=== PATIENT | male | born 1960 | race Caucasian/White ===

== ENCOUNTER 2017-11-13 19:47 | Emergency (ER) | payer MEDICARE, MEDICAID, SELFPAY ==
[2017-11-13 19:57] VITALS: BP 169/96; PULSE 67; RESP 22; TEMP 36.1; O2SAT 95
[2017-11-13 20:00] VITALS: RESP 20
--- NOTE | 2017-11-13 20:24 | DI.RAD_ITS ---
SYMPTOM/DIAGNOSIS: COUGH, SOB, COPD PA AND LATERAL CHEST: Comparison is made with 12 August 2017. The heart is mildly enlarged, unchanged. The aorta appears normal in diameter. The lungs are clear. No infiltrate, effusion or pulmonary edema is seen. An old right 5th rib deformity is noted. IMPRESSION: No acute abnormality.
--- NOTE | 2017-11-13 20:29 | ED.GENADUL_ITS ---
Discharge Plan Disposition Patient Disposition: HOME Condition: Stable Discharge Details Chief Complaint: SOB Clinical Impression: Acute exacerbation of chronic obstructive pulmonary disease (COPD) Primary Care Provider: Marivel Cardenas ED Provider: Tommy Chaudhry Home Meds and New Rx's Prescriptions: New prednisone 50 mg tablet 50 mg PO DAILY 5 Days Qty: 5 RF: 0 doxycycline hyclate 100 mg tablet 100 mg PO BID 10 Days Qty: 20 RF: 0 Continue metformin 1,000 MG tablet 1,000 mg PO BID RF: 0 olanzapine 15 MG tablet 15 mg PO DAILY RF: 0 fluticasone [Flovent HFA] 12 GM HFA aerosol inhaler 2 spray Inhalation BID RF: 0 ranitidine HCl 150 MG capsule 150 mg PO BID RF: 0 rosuvastatin [Crestor] 20 MG tablet 20 mg PO DAILY RF: 0 albuterol sulfate [ProAir RespiClick] 90 MCG aerosol powdr breath activated 90 mcg Inhalation Q 4-6 HRS RF: 0 propranolol 40 MG tablet 40 mg PO BID Qty: 60 RF: 3 divalproex [Depakote ER] 500 MG tablet extended release 24 hr 500 mg PO BID RF: 0 polyethylene glycol 3350 255 GM powder 17 gm PO DAILY RF: 0 albuterol sulfate [Ventolin HFA] 1 PUFF HFA aerosol inhaler 2 puff Inhalation PRN PRNRF: 0 fenofibrate nanocrystallized [Tricor] 145 MG tablet 145 mg PO DAILY RF: 0 clotrimazole 15 GM cream 30 gm Topical BID 14 Days RF: 0 Discontinued doxycycline hyclate [Doryx] 100 MG tablet,delayed release (DR/EC) 100 mg PO BID 10 Days Qty: 20 RF: 0 Discharge Instructions Instructions: COPD (Chronic Obstructive Pulmonary Disease) (ED) Additional Instructions: Follow-up with regular doctor for recheck in approximately 1 week's time. Call for an appointment. Take antibiotics and prednisone as prescribed. Continue your regular medications. Continue your efforts to decrease smoking. Medical Decision Making MDM Narrative Medical decision making narrative: See 57-year-old male with a history of COPD presents with 4 days of shortness of breath. He is not hypoxic, is slightly diminished on exam. Differential diagnosis would include pneumonia, bronchitis. He has not had chest pain or significant weight gain, therefore feel ACS or acute congestive heart failure significantly less likely. Patient given oral steroids, and DuoNeb updraft, referred for chest x-ray which does not reveal acute pulmonary disease. Improved following inhaled DuoNeb. We will place him on a course of doxycycline and systemic steroids. I discussed home care as well as follow-up and return precautions with the patient prior to discharge. HPI - General Adult General Mode of arrival: ambulatory . Date/Time Provider Initiated Documentation: 11/13/17 20:19 . Limitations to Documentation: no limitations . Information obtained by: patient . History of Present Illness 57 year old M presents to the emergency department with the chief complaint of Shortness of breath, described as moderate, Quality is described as constant , and is localized to the chest. Patient started experiencing this day(s) and it has been constant. Rest improves symptom(s), Movement worsens symptoms . Patient notes no other symptoms.. HPI Narrative: Shortness of breath: 57-year-old male smoker with history of COPD. States she has had approximately 4 days of the gradual onset of generalized shortness of breath it is worse with exertion somewhat improved with his inhaled medications. He has not had any recent steroids or antibiotics. He denies fever. He has had a cough with production of sputum. No significant weight loss or gain. Denies recent chest pain. Related Data Home Medications Medication Instructions Recorded Confirmed albuterol sulfate [Ventolin HFA] 2 puff INHALATION PRN PRN 05/13/12 11/13/17 divalproex [Depakote ER] 500 mg PO BID 05/13/12 11/13/17 fenofibrate nanocrystallized 145 mg PO DAILY 05/13/12 11/13/17 [Tricor] polyethylene glycol 3350 17 gm PO DAILY 05/13/12 11/13/17 albuterol sulfate [ProAir 90 mcg INHALATION Q 4-6 HRS 02/25/17 11/13/17 RespiClick] fluticasone [Flovent HFA] 2 spray INHALATION BID inhaler 02/25/17 11/13/17 metformin 1,000 mg PO BID tab-cap 02/25/17 11/13/17 olanzapine 15 mg PO DAILY tab-cap 02/25/17 11/13/17 ranitidine HCl 150 mg PO BID tab-cap 02/25/17 11/13/17 rosuvastatin [Crestor] 20 mg PO DAILY tab-cap 02/25/17 11/13/17 Previous Rx's Medication Instructions Recorded clotrimazole 30 gm TOPICAL BID 14 Days tube 08/12/17 doxycycline hyclate 100 mg PO BID 10 Days #20 tab 11/13/17 prednisone 50 mg PO DAILY 5 Days #5 tab 11/13/17 Allergies Allergy/AdvReac Type Severity Reaction Status Date / Time Penicillins Allergy Hives, Unverified 11/13/17 20:06 GET SICK General Stated Complaint: SOB PATEL: 3 Review of Systems Review of Systems 7 systems reviewed, otherwise - PFSH Medical History Adenomatous colon polyp Back pain Bipolar 1 disorder COPD (chronic obstructive pulmonary disease) Diabetes mellitus GERD (gastroesophageal reflux disease) Heart disease Hyperlipidemia Hypertension Lumbar spinal stenosis Morbid obesity Resting tremor Tobacco dependence Social History Smoking/Tobacco Use Status: Current every day Exam Const General: cooperative and no acute distress Orientation: alert and awake HENMT Head: normal to inspection, normocephalic and atraumatic Eyes General: appearance normal, both eyes and all related structures Eyelids: eyelids normal Pupils: PERRL Neck Neck: normal visual inspection and full ROM Chest Chest: normal inspection of the chest Resp Effort & Inspection: normal respiratory effort, able to speak in complete sentences and other (Diminished throughout.) Cardio Palpation: normal PMI Rate: regular rate Rhythm: regular rhythm GI Inspection: normal to inspection Palpation: soft and no hepatosplenomegaly Skin Lesions: no lesions Rashes: no rashes Neuro General: alert, awake and oriented x3 Extrem General: other (Trace pretibial edema bilaterally. Normal range of motion and motor is 5 out of 5 bile) Psych Mental Status: mental status grossly normal Speech and Movement: speech and movement normal Mood: congruent mood Affect: normal affect Course Vital Signs Temperature 36.1 C L 11/13/17 19:57 Pulse 67 11/13/17 19:57 Respiratory Rate 22 11/13/17 19:57 Blood Pressure 169/96 H 11/13/17 19:57 Pulse Oximetry 95 11/13/17 19:57 Temperature 36.1 C L 11/13/17 19:57 Pulse 67 11/13/17 19:57 Respiratory Rate 20 11/13/17 20:00 Blood Pressure 169/96 H 11/13/17 19:57 Pulse Oximetry 95 11/13/17 19:57
[2017-11-13] MEDS: predniSONE 20 MG TAB 60 MG PO (20:37)
[2017-11-13 20:38] VITALS: PULSE 67; RESP 22; RESP 8; O2SAT 95
[2017-11-13] MEDS: Albuterol/Ipratropium 3 ML UPD VIAL UPD (20:38)
[2017-11-13 21:08] VITALS: RESP 8
--- NOTE | 2017-11-13 22:07 | DI.VRAD_ITS ---
EXAM: XR Chest, 2 Views EXAM DATE/TIME: 11/13/2017 8:25 PM CLINICAL HISTORY: 57 years old, male; Signs and symptoms; Cough and shortness of breath; Patient HX: Cough, SOB; Additional info: Copd TECHNIQUE: XR of the chest, 2 views. COMPARISON: CR - CHEST 2 VIEWS PA,LAT 08/12/2017 11:19 AM FINDINGS: Lungs: Lung volumes are adequate. No focal consolidation is seen. Pleural space: Unremarkable. No pleural effusion. No pneumothorax. Heart/Mediastinum: Cardiac silhouette appears mildly prominent, similar to priors. Mediastinal contours are otherwise within normal limits. Bones/joints: Minimal thoracic spondylosis. Possible old posterolateral right fifth rib fracture. No acute fractures are seen. IMPRESSION: No evidence of acute cardiopulmonary disease. Dictated and Authenticated by: Miguel Hardin MD. Ordering:CHERYL LONGORIA MD
[2017-11-13] MEDS: Doxycycline Hyclate 100 MG CAP PO (22:15)
[2017-11-13 22:24] VITALS: BP 152/92; PULSE 71; RESP 20; O2SAT 95
== END 2017-11-13 22:26 | disposition home or self-care (01) ==
PROVIDERS: Emergency Provider Emergency Medicine; PCP Nurse Practitioner Family
DX: J44.1 Chronic obstructive pulmonary disease with (acute) exacerbation (principal); E11.9 Type 2 diabetes mellitus without complications; Z79.84 Long term (current) use of oral hypoglycemic drugs; F17.210 Nicotine dependence, cigarettes, uncomplicated; I10 Essential (primary) hypertension
CPT/HCPCS: 94640; 99283; 71046; J7512; J7620

== ENCOUNTER 2018-01-10 15:52 | Outpatient (REF) | payer MEDICARE, MEDICAID, SELFPAY ==
[2018-01-10 19:14] LABS: COMMENT (LAB VIEW ONLY) 233.75 mg/dL; Microalb ug/mg Crea 217.8 ug/mg Cr
== END 2018-01-10 16:12 ==
LOC: NCHCN 15:52
PROVIDERS: PCP Nurse Practitioner Family; Visit Provider Nurse Practitioner Family
DX: E11.9 Type 2 diabetes mellitus without complications (principal)
CPT/HCPCS: 82043; 82570

== ENCOUNTER 2018-01-13 18:23 | Outpatient (REF) | payer MEDICARE, MEDICAID, SELFPAY ==
[2018-01-13 19:40] LABS: TSH (W/Ref FT4) 3.23 uIU/mL (0.358-3.74); Vitamin B12 454 pg/mL (193-986)
[2018-01-13 23:39] LABS: Vitamin D 25 Total 26.1 ng/ml (30-100)
== END 2018-01-13 18:43 ==
LOC: NCHCN 18:23
PROVIDERS: PCP Nurse Practitioner Family; Visit Provider Nurse Practitioner Family
DX: F10.99 Alcohol use, unspecified with unspecified alcohol-induced disorder (principal); E78.5 Hyperlipidemia, unspecified; E66.01 Morbid (severe) obesity due to excess calories
CPT/HCPCS: 82306; 82607; 84443

== ENCOUNTER 2018-02-01 14:42 | Outpatient (REF) | payer MEDICARE, MEDICAID, SELFPAY ==
[2018-02-01 18:38] LABS: BUN 11 mg/dL (7-18); Calcium 8.8 mg/dL (8.5-10.1); Chloride 97 mmol/L (98-107); Glucose 149 mg/dL (70-100); Sodium 137 mmol/L (136-145)
== END 2018-02-01 15:02 ==
LOC: NCHCN 14:42
PROVIDERS: PCP Nurse Practitioner Family; Visit Provider Nurse Practitioner Family
DX: E11.9 Type 2 diabetes mellitus without complications (principal)
CPT/HCPCS: 80048

== ENCOUNTER 2018-09-08 11:35 | Observation (INO) | payer MEDICARE, MEDICAID, SELFPAY ==
[2018-09-08] VITALS (11 sets, daily range): BP systolic 139–158; BP diastolic 79–103; PULSE 46–61; RESP 18–20; TEMP 36.1–36.7; O2SAT 94–97
--- NOTE | 2018-09-08 11:48 | DI.RAD_ITS ---
SYMPTOM/DIAGNOSIS: CHEST PAIN PA AND LATERAL CHEST: Comparison is made with 13 Nov 2017. The heart is enlarged, unchanged. There are mildly increased interstitial markings and mild peribronchial thickening which appears unchanged. The findings could represent chronic bronchitis. No focal consolidation of effusion is seen. There has been previous resection of a portion of the right 5th rib. IMPRESSION: No acute abnormality.
--- NOTE | 2018-09-08 11:55 | ED.GENADUL_ITS ---
Discharge Plan Disposition Condition: Stable Discharge Details Chief Complaint: Chest Pain Admit Date/Time: 09/08/18 16:07 Admit Provider: Almita Quiros Attending Provider: Almita Quiros Primary Care Provider: Marivel Cardenas ED Provider: Parth Boudreaux Discharge Instructions Activity:: Activity as Tolerated Equipment/Supplies:: No Equipment Needed Diet:: diabetic cardiac Discharge Orders Discharge Orders: Discharge Order (Routine); Ordered 09/09/18 Ordered By: Almita Quiros Discharge Data Discharge Date/Time-TO BE ENTERED AT DEPARTURE: 09/08/18 17:36 Medical Decision Making 12:10 --57-year-old male smoker with history of hyperlipidemia, hypertension, diabetes, COPD, here with chest pain intermittent over the past 1 week, had an episode lasting about 1 hour prior to calling EMS today. Concern for ACS. ECG reviewed and interpreted by me: Sinus bradycardia 55 bpm, normal axis, no STEMI, nondiagnostic. Plan to check troponin. Patient is currently pain-free. I will give aspirin. We will attempt to obtain outside hospital records from hospital in [facility] where he had catheterization. 12:55 --Initial troponin negative. Patient reassessed remained stable. Chest x-ray reviewed and interpreted by me: No acute cardiopulmonary disease noted. Given risk factors, plan for hospitalization for rule out ACS. I called and spoke with the hospitalist, Dr. Quiros, who request delta troponin be performed here in the emergency department. If negative, she will admit to an plan for admission to [facility] for further work-up. 14:32 --chest x-ray interpreted by radiology: No pneumonia but cannot exclude acute on chronic bronchitis. -- Delta trop neg. Plan to admit. HPI General Mode of arrival: EMS . Date/Time Provider Initiated Documentation: 09/08/18 11:39 . Limitations to Documentation: no limitations . Information obtained by: patient and EMS . HPI Narrative: 57-year-old male with multiple medical problems including history of COPD, GERD, hypertension, bipolar disorder, hyperlipidemia, hypertension, diabetes, smoker, here with chief complaint of chest pain. Patient notes that he has had chest pain intermittently almost daily for the past 1 week. Episodes are typically brief. He had an episode last night that lasted approximately 5 minutes and was described as a pressure in his left chest radiating to his left arm. He had associated clamminess, sweating and nausea with that episode. He had another episode again this morning described as pressure in his left chest that lasted approximately 1 hour. No radiation. He did have associated clammy sweats and nausea with episode today as well. He denies associated shortness of breath. No calf swelling or pain. No recent long distance travel or surgery. EMS arrived to find the patient pain-free and hemodynamically stable, Patient does note that he had a cardiac catheterization about 1 year ago in [facility] and was told that he had an artery with 50% blockage that did not require a stent. Related Data Home Medications Medication Instructions Recorded Confirmed ProAir RespiClick 90 mcg INHALATION Q 4-6 HRS 02/25/17 09/08/18 metformin 1,000 mg PO BID tab-cap 02/25/17 09/08/18 olanzapine 15 mg PO DAILY tab-cap 02/25/17 09/08/18 ranitidine HCl 150 mg PO BID tab-cap 02/25/17 09/08/18 rosuvastatin [Crestor] 20 mg PO HS tab-cap 02/25/17 09/08/18 propranolol 40 mg PO BID #60 tab-cap 06/08/17 09/08/18 fluticasone propionate 220 1 puff IH BID 06/22/18 09/08/18 mcg/actuation HFA aerosol inhaler gabapentin 300 mg capsule 300 mg PO TID 06/22/18 09/08/18 lisinopril 10 mg tablet 10 mg PO DAILY 06/22/18 09/08/18 nicotine 21 mg/24 hr daily 1 patch TD Q24H 06/22/18 09/08/18 transdermal patch Symbicort 1 puff INHALATION BID 09/08/18 09/08/18 cholecalciferol (vitamin D3) 2,000 unit PO DAILY 09/08/18 09/08/18 divalproex 500 mg PO BID 09/08/18 09/08/18 aspirin 81 mg PO DAILY #30 tab 09/09/18 magnesium oxide 400 mg PO BID #30 cap 09/09/18 nitroglycerin [Nitrostat] 0.4 mg SUBLINGUAL Q5 MIN PRN X3 09/09/18 PRN #30 tab prednisone 40 mg PO DAILY #6 tab 09/09/18 Previous Rx's Medication Instructions Recorded propranolol 40 mg PO BID #60 tab-cap 06/08/17 aspirin 81 mg PO DAILY #30 tab 09/09/18 magnesium oxide 400 mg PO BID #30 cap 09/09/18 nitroglycerin [Nitrostat] 0.4 mg SUBLINGUAL Q5 MIN PRN X3 09/09/18 PRN #30 tab prednisone 40 mg PO DAILY #6 tab 09/09/18 Allergies Allergy/AdvReac Type Severity Reaction Status Date / Time Penicillins Allergy Hives, Unverified 11/13/17 20:06 GET SICK General Stated Complaint: Chest Pain PATEL: 2 Review of Systems Review of Systems All systems reviewed & are unremarkable except as noted in HPI and below Constitutional Denies fever(s) Cardiovascular Reports chest pain and Denies dyspnea Respiratory Denies dyspnea Gastrointestinal Reports nausea PFSH Medical History Adenoma of colon (Acute) Sleep disturbance (Acute) Alcohol abuse (Chronic) Adenomatous colon polyp Back pain Bipolar 1 disorder COPD (chronic obstructive pulmonary disease) Diabetes mellitus GERD (gastroesophageal reflux disease) Heart disease Hyperlipidemia Hypertension Lumbar spinal stenosis Morbid obesity Resting tremor Tobacco dependence Surgical History H/O pneumonectomy (Chronic) History of cardiac cath (Chronic) Family History Father Cancer Maternal Cousin Cancer Other Hypertension Social History Smoking/Tobacco Use Status: Former Tobacco Use Quit Date: 09/04/18 Pack-years: 45 Tobacco: How many years used: 45 Counseling given: provider counseling and support medications Alcohol Intake: current Alcohol Intake frequency: a few times a week Drug use: Never Household members: other Details: daughter Do you feel safe in your relationship?: Yes Exam Const General: cooperative and no acute distress HENMT Head: normocephalic and atraumatic Mouth: moist mucous membranes Eyes Conjunctivae: normal conjunctivae Sclera: normal sclerae Neck Neck: trachea midline and supple Resp Effort & Inspection: normal respiratory effort Auscultation: no rales, no rhonchi and wheezes expiratory wheezes (bilateral subtle) Cardio Jugular venous pressure: no JVD Rate: regular rate and not tachycardic Rhythm: regular rhythm GI Palpation: soft, not firm, no guarding, no masses, not rigid and nontender Skin General skin exam: no rashes or lesions noted Neuro General: alert, awake, oriented x3 and tone normal Extrem General: no calf tenderness and no edema Psych Appearance: grossly normal Course Vital Signs Temperature 36.7 C 09/08/18 11:36 Pulse 57 L 09/08/18 11:36 Respiratory Rate 09/08/18 11:36 Blood Pressure 153/103 H 09/08/18 11:36 Pulse Oximetry 97 09/08/18 11:36 Temperature 36.7 C 09/08/18 11:36 Temperature Source Skin 09/08/18 11:36 Pulse 57 L 09/08/18 11:36 Respiratory Rate 09/08/18 11:36 Respiratory Effort Non-Labored 09/08/18 11:36 Blood Pressure 153/103 H 09/08/18 11:36 Blood Pressure Position Supine 09/08/18 11:36 Pulse Oximetry 97 09/08/18 11:36 Oxygen Delivery Method Room Air 09/08/18 11:36 Oxygen Flow Rate 0 09/08/18 11:36 Pain Level 0 09/08/18 11:36
[2018-09-08] MEDS: Aspirin 81 MG CHEW 324 MG CH (11:56)
[2018-09-08] MEDS: Normal Saline Flush 10 ML SYR IVP ×2 (11:57→21:18)
[2018-09-08 12:13] LABS: Abs Immature Grans 0.05 k/cumm (0.0-0.09); Absolute Basophil Count 0.05 k/cumm (0.0-0.2); Absolute Eosinophil Count 0.68 k/cumm (0.0-0.7); Absolute Lymphocyte Count 3.77 k/cumm (1.2-3.4); Absolute Monocyte Count 0.47 k/cumm (0.11-0.7); Basophils % 0.7; Eosinophils % 9.4; HCT 40.8 % (40.0-50.0); HGB 14.8 g/dL (13.5-17.5); Immature Grans % 0.7; Lymphocytes % 52.2; Mean Corp. HGB Concentration 36.3 g/dL (32.0-36.0); Mean Corpuscular Hemoglobin 32.4 pg (27.0-33.0); Mean Corpuscular Volume 89.3 fL (80-95); Mean Platelet Volume 10.4 fL (8.0-11.0); Monocytes % 6.5; Neutrophils % 30.5; Platelet Count 140 x1000/uL (130-400); RBC 4.57 m/cumm (4.50-6.00); White Blood Cell Count 7.22 k/cumm (4.4-10.8)
[2018-09-08 12:21] LABS: ALT 15 U/L (12-78); AST 8 U/L (15-37); Albumin 3.5 g/dL (3.4-5.0); Alkaline Phosphatase 61 U/L (46-116); Anion Gap 8.7 mmol/L (3-11); BUN 6 mg/dL (7-18); Bilirubin, Total 0.5 mg/dL (0.2-1.0); CO2 27.3 mmol/L (21.0-32.0); CREATININE 0.94 mg/dL (0.70-1.30); Calcium 9.6 mg/dL (8.5-10.1); Chloride 98 mmol/L (98-107); Glucose 142 mg/dL (70-100); Potassium 3.9 mmol/L (3.5-5.1); Sodium 134 mmol/L (136-145); Total Protein 6.9 g/dL (6.4-8.2)
[2018-09-08 12:22] LABS: Prothrombin Time 10.2 sec (9.3-11.0)
[2018-09-08 12:27] LABS: Troponin I < 0.05 ng/mL (0.00-0.06)
[2018-09-08 12:34] LABS: D-Dimer 451 ng/mlFEU (<500)
[2018-09-08] MEDS: MAGNESIUM SULFATE 2 GM/50 ML BAG IVPB (13:46)
--- NOTE | 2018-09-08 13:55 | DI.VRAD_ITS ---
EXAM: XR Chest, 2 Views EXAM DATE/TIME: 09/08/2018 12:21 PM CLINICAL HISTORY: 57 years old, male; Shortness of breath TECHNIQUE: Imaging protocol: XR of the chest, 2 views. COMPARISON: CR XR CHEST 2V PA LATERAL 11/13/2017 9:14 PM CR - CHEST 2 VIEWS PA,LAT 06/01/2014 6:39:57 AM FINDINGS: Lungs: There is bilateral bronchial wall thickening which appears chronic and therefore is favored be due to chronic bronchitis. Superimposed acute bronchitis however cannot be excluded radiographically. No focal peripheral lung consolidation, air bronchogram formation, or silhouette sign. Pleural space: No pleural effusion or pneumothorax. Heart/Mediastinum: The heart is not enlarged. The mediastinal contours are normal. Bones/joints: There is chronic segmental loss of the posterolateral right fifth rib which may be due to prior surgery or trauma. Given the fact that this was present on the exam dated 06/01/2014 this is not felt to be due to an aggressive destructive lesion. IMPRESSION: No pneumonia, but cannot exclude acute on chronic bronchitis. Dictated and Authenticated by: Gerson Rangel MD. Ordering:ALPESH Alba MD
[2018-09-08 15:25] LABS: Troponin I < 0.05 ng/mL (0.00-0.06)
--- NOTE | 2018-09-08 17:08 | NUR.NOTE ---
pt resting in bed vs on monitor provided with water tolorating po intake Nursing Note:
[2018-09-08] MEDS: Heparin 5,000 UNITS/ML VIAL 5000 UNITS SC ×2 (17:31→23:15)
--- NOTE | 2018-09-08 17:39 | W.PM.HP.N ---
Date of service: 09/08/18 Time of Service: 17:39 Assessment and Plan (1) Chest pain at rest: Current visit: Yes Status: Acute We are obtaining results of the cardiac cath from a year ago. While the radiation and the dizziness/nausea/fluttering are concerning for a real cardiac cause of the pain (unstable angina), the abdominal pain and diarrhea of the same onset argue against it. Pulmonary etiology is also a possibility. I do, however, think that it is possible that the diarrhea caused the patient to have hypomagnesemia, which could have caused an arrhythmia. Will monitor on telemetry, trend troponins, obtain echo and cardiology consult. My understanding is that we do not have stress tests available tomorrow. Continue asa started in ED; check fasting lipid panel, TSH. (2) COPD with acute exacerbation: Current visit: Yes Status: Acute Start the patient on prednisone 40 mg in addition to offering nebs. No evidence of PNA on CXR. (3) Non-insulin dependent type 2 diabetes mellitus: Current visit: Yes Status: Chronic Hold metformin; cover with SSI (4) Hypomagnesemia: Current visit: Yes Status: Acute Replete; read above (5) Hyperlipidemia: Current visit: Yes Status: Acute check fasting lipid panel, continue rosuvastatin (6) Hypertension: Current visit: Yes Status: Chronic No change in outpatient tx (7) GERD (gastroesophageal reflux disease): Current visit: Yes Status: Chronic Patient is on ranitidine - will continue (8) Discharge planning issues: Current visit: Yes Status: Acute Full code (9) DVT prophylaxis: Current visit: Yes Status: Acute Heparin SQ for DVT ppx History of Present Illness Chief Complaint: chest pains Narrative: Mr Aleman is a 57 year old male with PMHx of CAD s/p PA in [place] 8 years ago as well as cardiac cath last year in [place], [place] for ongoing chest pains (50% stenosis - unkown vessel, treated medically, per patient), as well as NIDDM2, HTN, Hyperlipidemia, tobacco abuse, who presented to [facility] ED today complaining of a number of symptoms that have been going on for 1 week. He describes L-sided dull and stabbing chest pain that have been happening daily for the last week, occuring at rest. Lately they started to radiate to the L shoulder (tingling), have made the patient feel dizzy, nauseated, as well as cold clammy sweats and shortness of breath. He had a chest pain last night that was self-limited, lasting for about 5 minutes. This morning he had a chest pain that was also accompanied by a sensation of fluttering in his chest that lasted for an hour, which made him nervous, so he came to the hospital. At the same time, the patient states he has been having abdominal pain, diarrhea and nausea associated with that. He is not having abdominal symptoms now. Diarrhea is being described as watery and sometimes soft brown. Finally, the patient has also noticed wheezing and a nonproductive cough for the last few days. No fevers. The patient has not been taking aspirin. I know I should, but I haven't bought it. Review of Systems Review of Systems 12 systems reviewed. Pertinent positives and negatives are as per HPI. [facility] Medical History Adenoma of colon (Acute) Sleep disturbance (Acute) Alcohol abuse (Chronic) Adenomatous colon polyp Back pain Bipolar 1 disorder COPD (chronic obstructive pulmonary disease) Diabetes mellitus GERD (gastroesophageal reflux disease) Heart disease Hyperlipidemia Hypertension Lumbar spinal stenosis Morbid obesity Resting tremor Tobacco dependence Surgical History H/O pneumonectomy (Chronic) History of cardiac cath (Chronic) Family History Father Cancer Maternal Cousin Cancer Other Hypertension Social History Smoking/Tobacco Use Status: Former Tobacco Use Quit Date: 09/04/18 Pack-years: 45 Tobacco: How many years used: 45 Counseling given: provider counseling and support medications Alcohol Intake: current Alcohol Intake frequency: a few times a week Drug use: Never Household members: other Details: daughter Do you feel safe in your relationship?: Yes Meds Home Medications Medication Instructions Recorded Confirmed Type ProAir RespiClick 90 mcg INHALATION Q 4-6 HRS 02/25/17 09/08/18 History metformin 1,000 mg PO BID tab-cap 02/25/17 09/08/18 History olanzapine 15 mg PO DAILY tab-cap 02/25/17 09/08/18 History ranitidine HCl 150 mg PO BID tab-cap 02/25/17 09/08/18 History rosuvastatin [Crestor] 20 mg PO HS tab-cap 02/25/17 09/08/18 History propranolol 40 mg PO BID #60 tab-cap 06/08/17 09/08/18 Rx fluticasone propionate 220 1 puff IH BID 06/22/18 09/08/18 History mcg/actuation HFA aerosol inhaler gabapentin 300 mg capsule 300 mg PO TID 06/22/18 09/08/18 History lisinopril 10 mg tablet 10 mg PO DAILY 06/22/18 09/08/18 History nicotine 21 mg/24 hr daily 1 patch TD Q24H 06/22/18 09/08/18 History transdermal patch budesonide-formoterol [Symbicort] 1 puff INHALATION BID 09/08/18 09/08/18 History cholecalciferol (vitamin D3) 2,000 unit PO DAILY 09/08/18 09/08/18 History divalproex 500 mg PO BID 09/08/18 09/08/18 History Allergies Allergy/AdvReac Type Severity Reaction Status Date / Time Penicillins Allergy Hives, Unverified 11/13/17 20:06 GET SICK Exam Narrative Exam Narrative: General: Pleasant obese male, sitting at the edge of the stretcher, does not appear to be in acute distress, tremulous; he does appear to be changing his story somewhat as he is talking to me Neurological: A&Ox3, resting tremors, no obvious focal deficits Psychiatric: Normal speech pattern/content, other than a somewhat inconsistent story Skin: intact; tattoos BUE's. Feet without lesions HEENT: Atraumatic, normocephalic, EOMI, MMM, edentuous, clear oropharynx, no submandibular or cervical lymphadenopathy, + goiter, no JVD, large neck diameter Cardiovascular: RRR, no m/r/g Lungs: Expiratory wheezing B - quiet Gastrointestinal: abdomen is soft, + BS, nontender, nondistended Genitourinary: deferred Extremities: no e/c/c BLE's, 2+ pedal pulses B, no lesions on feet Results Imaging Additional studies: CXR: No pneumonia, but cannot exclude acute on chronic bronchitis. EKG: sinus lisa with HR 55, evidence of tremors, nonspecific ST-T changes, no acute ischemia Labs : 09/08/18 11:50 09/08/18 11:50 Laboratory Results - last 24 hr 09/08/18 09/08/18 09/08/18 11:50 11:50 11:50 WBC 7.22 RBC 4.57 Hgb 14.8 Hct 40.8 MCV 89.3 MCH 32.4 MCHC 36.3 H RDW 13.0 Plt Count 140 MPV 10.4 Immature Gran % 0.7 Neutrophils % 30.5 Lymphocytes % 52.2 Monocytes % 6.5 Eosinophils % 9.4 Basophils % 0.7 Absolute Neutrophils 2.20 Absolute Lymphocytes 3.77 H Absolute Monocytes 0.47 Absolute Eosinophils 0.68 Absolute Basophils 0.05 PT 10.2 INR 1.0 D-Dimer 451 Sodium 134 L Potassium 3.9 Chloride 98 Carbon Dioxide 27.3 Anion Gap 8.7 BUN 6 L Creatinine 0.94 Estimated GFR/1.73 m2 >= 60.00 Glucose 142 H Calcium 9.6 Magnesium 1.0 L Total Bilirubin 0.5 AST 8 L ALT 15 Alkaline Phosphatase 61 Troponin I < 0.05 Total Protein 6.9 Albumin 3.5 09/08/18 14:50 WBC RBC Hgb Hct MCV MCH MCHC RDW Plt Count MPV Immature Gran % Neutrophils % Lymphocytes % Monocytes % Eosinophils % Basophils % Absolute Neutrophils Absolute Lymphocytes Absolute Monocytes Absolute Eosinophils Absolute Basophils PT INR D-Dimer Sodium Potassium Chloride Carbon Dioxide Anion Gap BUN Creatinine Estimated GFR/1.73 m2 Glucose Calcium Magnesium Total Bilirubin AST ALT Alkaline Phosphatase Troponin I < 0.05 Total Protein Albumin Last Vital Signs Temp 36.7 C 09/08/18 11:36 Pulse 57 L 09/08/18 11:36 Resp 18 09/08/18 12:00 BP 153/103 H 09/08/18 11:36 Pulse Ox 97 09/08/18 11:36
[2018-09-08] MEDS: Magnesium Chloride 64 MG TABCR PO (20:23)
[2018-09-08] MEDS: Nicotine 21 MG/24 HR PATCH TD (20:23)
[2018-09-08] MEDS: Budesonide/Formoterol 160/4.5 6 GM 60 PUFF INH IH (20:23)
[2018-09-08] MEDS: Rosuvastatin 10 MG TAB 20 MG PO (20:24)
[2018-09-08] MEDS: Divalproex 500 MG TABEC PO (20:24)
[2018-09-08] MEDS: Gabapentin 300 MG CAP PO (20:24)
[2018-09-08] MEDS: MAGNESIUM SULFATE 4 GM/100 ML BAG IVPB (21:15)
[2018-09-08] MEDS: Normal Saline 500 ML 50 ML IV (21:15)
[2018-09-08] MEDS: Propranolol 40 MG TAB PO (21:15)
[2018-09-08] MEDS: predniSONE 20 MG TAB 40 MG PO (22:38)
[2018-09-08 22:55] LABS: Troponin I < 0.05 ng/mL (0.00-0.06)
[2018-09-09] VITALS (7 sets, daily range): BP systolic 145–168; BP diastolic 82–86; PULSE 51–65; RESP 17–22; TEMP 36.1–36.6; O2SAT 96–99
[2018-09-09 07:05] LABS: HGB 15.5 g/dL (13.5-17.5); Mean Corpuscular Hemoglobin 32.1 pg (27.0-33.0); Mean Platelet Volume 10.2 fL (8.0-11.0); Platelet Count 146 x1000/uL (130-400); RBC 4.83 m/cumm (4.50-6.00); RBC Distribution Width 12.9 % (11.8-14.1)
[2018-09-09] MEDS: Budesonide/Formoterol 160/4.5 6 GM 60 PUFF INH IH ×2 (07:27→07:30)
[2018-09-09 07:28] LABS: Anion Gap 5.1 mmol/L (3-11); BUN 9 mg/dL (7-18); CO2 28.9 mmol/L (21.0-32.0); CREATININE 0.88 mg/dL (0.70-1.30); Calcium 8.8 mg/dL (8.5-10.1); Chloride 95 mmol/L (98-107); Glucose 159 mg/dL (70-100); Magnesium 1.8 mg/dL (1.8-2.4); Potassium 4.3 mmol/L (3.5-5.1); Sodium 129 mmol/L (136-145)
--- NOTE | 2018-09-09 07:30 | MERGE_ITS ---
*[facility]* *[facility]* [address] [place] [address] Date of study: 09/09/2018 Transthoracic Echocardiography M-mode, complete 2D, complete spectral Doppler, and color Doppler *STUDY CONCLUSIONS* Summary: 1. Left ventricle: The cavity size was normal. Wall thickness was at the upper limits of normal. Systolic function was normal. The estimated ejection fraction was 60-65%. Wall motion was normal; there were no regional wall motion abnormalities. 2. Right ventricle: The cavity size was at the upper limits of normal. Systolic function was normal. 3. Left atrium: The atrium was mildly dilated. 4. Inferior vena cava: The vessel was patent and normal in size. The respirophasic diameter changes were in the normal range (greater than or equal to 50%), consistent with normal central venous pressure. *PATIENT PRESENTATION* Height: 180.3cm (71in ) S/D Pressure: 164 / 84 Weight: 118.8kg (261.5lb ) BSA: 2.48m^2 Test start time: 07:40 AM. Test stop time: 08:40 AM. 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 This study was interpreted by [facility]. Pertinent images and digital data are archived for permanent storage and are available for subsequent review. No prior study was available for comparison. Study status: Routine. Transthoracic echocardiography. M-mode, complete 2D, complete spectral Doppler, and color Doppler. A Transthoracic Echocardiogram was performed. Scanning was performed from the parasternal, apical, subcostal, and suprasternal notch acoustic windows. Images were obtained using an [id number] cardiac ultrasound machine. Image quality was adequate. Study completion: The patient tolerated the procedure well. There were no complications. History: PMH: Chest pain. *CARDIAC ANATOMY* Left ventricle: The cavity size was normal. Wall thickness was at the upper limits of normal. Systolic function was normal. The estimated ejection fraction was 60-65%. Wall motion was normal; there were no regional wall motion abnormalities. Findings consistent with diastolic dysfunction. There was no evidence of elevated ventricular filling pressure by Doppler parameters. Aortic valve: Trileaflet; mildly thickened leaflets. Mobility was not restricted. Doppler: Transvalvular velocity was within the normal range. There was no stenosis. There was no significant regurgitation. VTI ratio of LVOT to aortic valve: 0.92. Valve area (VTI): 3.1cm^2. Indexed valve area (VTI): 1.3cm^2/m^2. Peak velocity ratio of LVOT to aortic valve: 0.77. Valve area (Vmax): 2.6cm^2. Indexed valve area (Vmax): 1.1cm^2/m^2. Mean velocity ratio of LVOT to aortic valve: 0.71. Valve area (Vmean): 2.4cm^2. Indexed valve area (Vmean): 1cm^2/m^2. Mean gradient (S): 4.5mm Hg. Peak gradient (S): 9.3mm Hg. Aorta: Aortic root: The aortic root was normal in size. Ascending aorta: The ascending aorta was moderately dilated (45 mm). Mitral valve: Structurally normal valve. Mobility was not restricted. Doppler: Transvalvular velocity was within the normal range. There was no evidence for stenosis. There was trivial regurgitation. Valve area by pressure half-time: 3.6cm^2. Indexed valve area by pressure half-time: 1.4cm^2/m^2. Peak gradient (D): 2.9mm Hg. Left atrium: The atrium was mildly dilated. Right ventricle: The cavity size was at the upper limits of normal. Systolic function was normal. Pulmonic valve: Poorly visualized. Doppler: Transvalvular velocity was within the normal range. There was no evidence for stenosis. There was no significant regurgitation. Tricuspid valve: Structurally normal valve. Doppler: Transvalvular velocity was within the normal range. There was no evidence for stenosis. There was no significant regurgitation. Pulmonary artery: Poorly visualized. Systolic pressure could not be accurately estimated. Right atrium: The atrium was normal in size. Pericardium: There was no pericardial effusion. Systemic veins: Inferior vena cava: Well visualized. The vessel was patent and normal in size. The respirophasic diameter changes were in the normal range (greater than or equal to 50%), consistent with normal central venous pressure. Baseline ECG: Sinus bradycardia. Measurements Left ventricle Value Reference LV ID, ED, PLAX 5.2 cm 3.5 - 6.0 LV ID, ES, PLAX 3.4 cm 2.1 - 4.0 LV PW thickness, ED, PLAX 1.1 cm LV end-diastolic volume, 1-p A2C 109 ml LV ejection fraction, 1-p A2C 73 % LV end-diastolic volume, 1-p A4C 141 ml LV ejection fraction, 1-p A4C 69 % LV e', lateral 0.076 m/sec LV E/e', lateral 11 LV e', medial 0.066 m/sec LV E/e', medial 13 LV e', average 0.071 m/sec LV E/e', average 12 Ventricular septum Value Reference IVS thickness, ED, PLAX 1.1 cm LVOT Value Reference LVOT ID, A-P 2.1 cm LVOT area 3.4 cm^2 LVOT peak velocity, S 1.18 m/sec LVOT mean velocity, S 0.71 m/sec LVOT VTI, S 27.5 cm LVOT peak gradient, S 5.6 mm Hg LVOT mean gradient, S 2.4 mm Hg Stroke volume (SV), LVOT DP 94 ml Stroke index (SV/bsa), LVOT DP 38 ml/m^2 Aortic valve Value Reference Aortic valve peak velocity, S 1.5 m/sec Aortic valve mean velocity, S 1 m/sec Aortic valve VTI, S 30.0 cm Aortic mean gradient, S 4.5 mm Hg Aortic peak gradient, S 9.3 mm Hg VTI ratio, LVOT/AV 0.92 Aortic valve area, VTI 3.1 cm^2 Velocity ratio, peak, LVOT/AV 0.77 Aortic valve area, peak velocity 2.6 cm^2 Velocity ratio, mean, LVOT/AV 0.71 Aortic valve area, mean velocity 2.4 cm^2 Aortic valve area/bsa, mean velocity 1 cm^2/m^2 Aorta Value Reference Aortic root ID, ED 3.6 cm Ascending aorta ID, A-P, S 4.5 cm RVOT Value Reference RVOT VTI, S 17.9 cm Left atrium Value Reference LA ID, A-P, ES 4.0 cm LA ID/bsa, A-P 1.6 cm/m^2 <=2.2 LA volume/bsa, ES, 1-p A4C 35 ml/m^2 LA volume, ES, 2-p 71 ml LA volume/bsa, ES, 2-p 29 ml/m^2 LA/aortic root ratio 1.11 Mitral valve Value Reference Mitral E-wave peak velocity 0.85 m/sec Mitral A-wave peak velocity 0.98 m/sec Mitral deceleration time 213 ms 150 - 230 Mitral pressure half-time 62 ms Mitral peak gradient, D 2.9 mm Hg Mitral E/A ratio, peak 0.87 Mitral valve area, PHT, DP 3.6 cm^2 Pulmonary veins Value Reference Pulmonary vein peak velocity, S 0.57 m/sec Pulmonary vein peak velocity, D 0.59 m/sec Pulmonary vein velocity ratio, peak, 0.96 S/D Pulmonary vein A-wave reversal peak 0.32 m/sec velocity Pulmonary vein A-wave reversal 152 ms duration Tricuspid valve Value Reference Tricuspid regurg peak velocity 1.9 m/sec Tricuspid peak RV-RA gradient 15.1 mm Hg Right atrium Value Reference RA area, ES, A4C (H) 20.8 cm^2 8.3 - 19.5 Legend: (L) and (H) monica values outside specified reference range. I have personally reviewed the images and have reviewed and edited the reported findings. Electronically signed by Rogelio Steward 09/09/2018 09:09
[2018-09-09 07:36] LABS: Troponin I < 0.05 ng/mL (0.00-0.06)
--- NOTE | 2018-09-09 07:44 | PHARADMIT ---
Admission Pharmacy Clinical Review CHEST PAIN, QUESTION of UNSTABLE ANGINA Code Status Full Code Current Weight Wgt-119.2 kg Renally Cleared and Narrow Therapeutic Index Meds CrCl~96 mL/min Meds-OK QTc Value / Action Taken QTc-.386 NA BP Control, Fever BP- 168/84 Tmax-36.1C Electrolytes reviewed Na- 129 K+4.3 Mag-1.8 DVT Prophylaxis ASA-ec, Heparin-SC Opiate Usage / Scheduled Bowel Regimen Ordered No Yes Plt/SCr for Heparin / Enoxaparin Plts-146 SCr- 0.88 INR for Warfarin inr-1.0 H/H stable, WBC/Bands H&H-15.5/43.0 WBC- 5.80 Antibiotic appropriateness none Cultures and Sensitivities none Surgical ABX d/c within 24 hr NA DM control / Insulin Dosing BG-159 Aspart Heart Failure (Check EF%) (ANKIT's, B-Block, Diuretics) Lisinopril, NTG, Propranolol IV to PO Switch No Home Meds Reviewed Yes Home Meds Not Ordered Metformin, Comments Flovent -therapeutic Subst.
[2018-09-09] MEDS: Heparin 5,000 UNITS/ML VIAL 5000 UNITS SC ×2 (09:04→16:58)
[2018-09-09] MEDS: Gabapentin 300 MG CAP PO ×2 (09:04→14:16)
[2018-09-09] MEDS: Aspirin E.C. 81 MG TABEC PO (09:05)
[2018-09-09] MEDS: Propranolol 40 MG TAB PO (09:05)
[2018-09-09] MEDS: Lisinopril 10 MG TAB PO (09:05)
[2018-09-09] MEDS: Cholecalciferol (Vitamin D3) 1,000 UNIT TAB 2000 UNITS PO (09:05)
[2018-09-09] MEDS: Magnesium Chloride 64 MG TABCR PO (09:05)
[2018-09-09] MEDS: predniSONE 20 MG TAB 40 MG PO (09:05)
[2018-09-09] MEDS: Divalproex 500 MG TABEC PO (09:05)
[2018-09-09] MEDS: OLANZapine 5 MG TAB 15 MG PO (09:09)
--- NOTE | 2018-09-09 09:48 | PDOC.CMIN ---
Care Management Initial Assess REASON FOR HOSPITALIZATION:: chest pain, question unstable angina PAST MEDICAL HISTORY/PAST SURGICAL HISTORY:: Medical: adenoma of colon, sleep disturbance, chronic ETOH abuse, back pain, bipolar 1 disorder, COPD, DM2, GERD, heart disease, hyperlipidemia, HTN, lumbar spinal stenosis, obesity, resting tremor, tobacco abuse. Surgical: H/O pneumonectomy, H/O cardiac cath. PREVIOUS FUNCTIONAL STATUS/SOCIAL/FAMILY SUPPORTS:: He is 57 yo single male who lives with his daughter and LATRICE and their two children ages 3 and 4, in a home in [place]. He is disabled on SSDI and SSI. He no longer drives, but his daughter takes him to appts. Da works maritime pilot but her is home with the children when they are not at daycare. He is usually able to manage his own ADL's but da assists with IADL's, and medications. CURRENT FUNCTIONAL STATUS:: He was sitting up on edge of bed when CM entered. He easily engages in discussion re plans. ADVANCE DIRECTIVES:: Does not have formal document but was receptive to information which was given. Has patient been provided with information about the portal?: Yes Did the patient sign up for the portal?: No CODE STATUS:: Full Code INSURANCE COVERAGE / FINANCIAL ISSUES:: Medicare. Medicaid CURRENT HOME/COMMUNITY SERVICES/EQUIPMENT:: No services or equipment used. PRIMARY CARE PHYSICIAN:: Marivel Cardenas NP POTENTIAL DISCHARGE NEEDS:: He will need follow-up with his PCP as directed. PATIENT/FAMILY EDUCATION NEEDS:: Review d/c instructions re meds and activity levels. Review Ask me Now questions. ANTICIPATED BARRIERS TO DISCHARGE:: none identified TRANSPORTATION:: via car with his daughter PLAN:: d/c home as per MD, no services anticipated.
[2018-09-09] MEDS: Insulin Aspart 300 UNITS/3 ML PEN SC ×2 (11:31→17:02)
--- NOTE | 2018-09-09 13:34 | INITIAL_ITS ---
Care Management Initial Assess REASON FOR HOSPITALIZATION:: chest pain, question unstable angina PAST MEDICAL HISTORY/PAST SURGICAL HISTORY:: Medical: adenoma of colon, sleep disturbance, chronic ETOH abuse, back pain, bipolar 1 disorder, COPD, DM2, GERD, heart disease, hyperlipidemia, HTN, lumbar spinal stenosis, obesity, resting tremor, tobacco abuse. Surgical: H/O pneumonectomy, H/O cardiac cath. PREVIOUS FUNCTIONAL STATUS/SOCIAL/FAMILY SUPPORTS:: He is 57 yo single male who lives with his daughter and LATRICE and their two children ages 3 and 4, in a home in [place]. He is disabled on SSDI and SSI. He no longer drives, but his daughter takes him to appts. Da works time cycle operator but her is home with the children when they are not at daycare. He is usually able to manage his own ADL's but da assists with IADL's, and medications. CURRENT FUNCTIONAL STATUS:: He was sitting up on edge of bed when CM entered. He easily engages in discussion re plans. ADVANCE DIRECTIVES:: Does not have formal document but was receptive to informa tion which was given. Has patient been provided with information about the portal?: Yes Did the patient sign up for the portal?: No CODE STATUS:: Full Code INSURANCE COVERAGE / FINANCIAL ISSUES:: Medicare. Medicaid CURRENT HOME/COMMUNITY SERVICES/EQUIPMENT:: No services or equipment used. PRIMARY CARE PHYSICIAN:: Marivel Cardenas NP POTENTIAL DISCHARGE NEEDS:: He will need follow-up with his PCP as directed. PATIENT/FAMILY EDUCATION NEEDS:: Review d/c instructions re meds and activity levels. Review Ask me Now questions. ANTICIPATED BARRIERS TO DISCHARGE:: none identified TRANSPORTATION:: via car with his daughter PLAN:: d/c home as per MD, no services anticipated.
--- NOTE | 2018-09-09 16:11 | DSE_ITS ---
Date of service: 09/09/18 Time of Service: 16:09 DS: Diagnosis Discharge Diagnosis (1) Chest pain at rest: Status: Acute (2) COPD with acute exacerbation: Status: Acute (3) Non-insulin dependent type 2 diabetes mellitus: Status: Chronic (4) Hypomagnesemia: Status: Acute (5) Hyperlipidemia: Status: Acute (6) Hypertension: Status: Chronic (7) GERD (gastroesophageal reflux disease): Status: Chronic Discharge Plan Disposition Patient Disposition: HOME Condition: Stable Discharge Details Reason For Visit: CHEST PAIN, QUESTION OF UNSTABLE ANGINA Admit Date/Time: 09/08/18 16:07 Admit Provider: Almita Quiros Attending Provider: Almita Quiros Primary Care Provider: Marivel Cardenas Hospital Course Hospital Course: Mr Aleman is a 57 year old male wt PMHx of reported CAD s/p [place] as well as a cardiac cath in [place] a year ago, as well as NIDDM2, COPD, HTN, hyperlipidemia, who was observed on hospitalist service at [facility] overnight for reports of chest pains occuring at rest with radiation to LUE, but also accompanied by diarrhea and abdominal pain. He was also found to have a COPD exacerbation. The patient did not have an acute coronary syndrome on this admission. He was evaluated by cardiology - because the story is not classic for unstable angina, it is felt that the patient is safe for discharge home with follow up for outpatient nuclear stress test. He is being given a prescription for nitroglycerin on discharge. Home Meds and New Rx's Prescriptions: New prednisone 20 mg Tablet 40 mg PO DAILY Qty: 6 RF: 0 aspirin 81 mg Tablet,Delayed Release (Dr/Ec) 81 mg PO DAILY Qty: 30 RF: 0 nitroglycerin [Nitrostat] 0.4 mg Tablet, Sublingual 0.4 mg Sublingual Q5 MIN PRN X3 PRNQty: 30 RF: 0 magnesium oxide 400 mg capsule 400 mg PO BID Qty: 30 RF: 0 Continued lisinopril 10 mg tablet 10 mg PO DAILY RF: 0 gabapentin 300 mg capsule 300 mg PO TID RF: 0 Flovent HFA 220 mcg/actuation HFA aerosol inhaler 1 puff IH BID RF: 0 nicotine [Nicoderm CQ] 21 mg/24 hr patch 24 hour 1 patch TD Q24H RF: 0 metformin 1,000 MG tablet 1,000 mg PO BID RF: 0 olanzapine 15 MG tablet 15 mg PO DAILY RF: 0 ranitidine HCl 150 MG capsule 150 mg PO BID RF: 0 rosuvastatin [Crestor] 20 MG tablet 20 mg PO HS RF: 0 ProAir RespiClick 90 MCG aerosol powdr breath activated 90 mcg Inhalation Q 4-6 HRS RF: 0 propranolol 40 MG tablet 40 mg PO BID Qty: 60 RF: 3 divalproex 500 mg Tablet,Delayed Release (Dr/Ec) 500 mg PO BID RF: 0 cholecalciferol (vitamin D3) 1,000 unit Tablet 2,000 unit PO DAILY RF: 0 Symbicort 160-4.5 mcg/actuation Hfa Aerosol Inhaler 1 puff Inhalation BID RF: 0 Discharge Instructions Instructions: Nitroglycerin (By mouth), Cardiac Stress Test (DC), Chest Pain (DC) Additional Instructions: Return to the hospital with any more chest pain, fever, bleeding, or shortness of breath. Finish your steroids as prescribed. Referrals: Blanca Baugh MD [MD CONSULTING PHYSICIAN] - Marivel Cardenas [Primary Care Provider] - Activity:: Activity as Tolerated Equipment/Supplies:: No Equipment Needed Diet:: diabetic cardiac Discharge Orders Discharge Orders: Discharge Order (Routine); Ordered 09/09/18 Ordered By: Almita Quiros Other Ambulatory Orders: Basic Metabolic Panel (Routine) Timeframe: 1 Week Location: Determined by Patient Ordered By: Almita Quiros Magnesium (Routine) Timeframe: 1 Week Location: Determined by Patient Ordered By: Almita Quiros NM MPI rest & stress grp (Routine) Timeframe: 1 Week Facility: [facility] - Location: CARDIAC LAB Ordered By: Almita Quiros Exam Narrative Exam Narrative: General: Pleasant obese male, laying in bed asleep, easily arousable Neurological: A&Ox3, resting tremors, no obvious focal deficits Psychiatric: Normal speech pattern/content Skin: intact; tattoos BUE's. Feet without lesions HEENT: Atraumatic, normocephalic, EOMI, MMM, edentuous, clear oropharynx, no submandibular or cervical lymphadenopathy, + goiter, no JVD, large neck diameter Cardiovascular: RRR, no m/r/g Lungs: wheezing has resolved - CTAB Gastrointestinal: abdomen is soft, + BS, nontender, nondistended Genitourinary: deferred Extremities: no e/c/c BLE's, 2+ pedal pulses B, no lesions on feet DS: Data Vitals/I&O Vitals and I&O: Vital Signs Temperature 36.6 C 09/09/18 12:00 Temperature Source Tympanic 09/09/18 12:00 Pulse 65 09/09/18 12:00 Pulse Rhythm Regular 09/09/18 10:26 Respiratory Rate 18 09/09/18 12:00 Respiratory Effort Non-Labored 09/09/18 10:26 Respiratory Depth Normal 09/09/18 10:26 Respiratory Pattern Normal 09/09/18 10:26 Blood Pressure 155/86 H 09/09/18 12:00 Blood Pressure Position Supine 09/08/18 11:36 Pulse Oximetry 99 09/09/18 12:00 Oxygen Delivery Method Room Air 09/09/18 12:00 Oxygen Flow Rate 0 09/09/18 12:00 Pain Level 6 09/08/18 18:19 Intake & Output 09/08/18 09/09/18 09/09/18 23:59 11:59 23:59 Intake Total 316.667 / 316.667 110 / 110 Output Total 600 / 600 Balance 316.667 / 316.667 -490 / -490 Weight 119.2 kg 117.8 kg Intake: IV 76.667 / 76.667 110 / 110 Oral 240 / 240 Output: Urine 600 / 600 Other: Urine Color Pale Yellow Urine Appearance Clear Clear Urine Odor None Voiding Methods Toilet Urinal Completed studies during hospitalization [Text1]: CXR: No pneumonia, but cannot exclude acute on chronic bronchitis. EKG: sinus lisa with HR 55, evidence of tremors, nonspecific ST-T changes, no acute ischemia Labs on day of discharge: Labs from last 24 hours 09/09/18 09/09/18 09/08/18 06:45 06:45 22:10 WBC 5.80 RBC 4.83 Hgb 15.5 Hct 43.0 MCV 89.0 MCH 32.1 MCHC 36.0 RDW 12.9 Plt Count 146 MPV 10.2 Sodium 129 L Potassium 4.3 Chloride 95 L Carbon Dioxide 28.9 Anion Gap 5.1 BUN 9 Creatinine 0.88 Estimated GFR/1.73 m2 >= 60.00 Glucose 159 H Calcium 8.8 Magnesium 1.8 Troponin I < 0.05 < 0.05 TSH 1.10 PFSH Medical History Adenoma of colon (Acute) Sleep disturbance (Acute) Alcohol abuse (Chronic) Adenomatous colon polyp Back pain Bipolar 1 disorder COPD (chronic obstructive pulmonary disease) Diabetes mellitus GERD (gastroesophageal reflux disease) Heart disease Hyperlipidemia Hypertension Lumbar spinal stenosis Morbid obesity Resting tremor Tobacco dependence Surgical History H/O pneumonectomy (Chronic) History of cardiac cath (Chronic) Family History Father Cancer Maternal Cousin Cancer Other Hypertension Social History Smoking/Tobacco Use Status: Former Tobacco Use Quit Date: 09/04/18 Pack-years: 45 Tobacco: How many years used: 45 Counseling given: provider counseling and support medications Alcohol Intake: current Alcohol Intake frequency: a few times a week Drug use: Never Household members: other Details: daughter Do you feel safe in your relationship?: Yes
[2018-09-09] MEDS: Nicotine 21 MG/24 HR PATCH TD (17:01)
== END 2018-09-09 18:53 | disposition home or self-care (01) ==
LOC: ER 16:12 → MS 17:43
PROVIDERS: Admitting Provider Internal Medicine; Emergency Provider Student in an Organized Health Care Education/Training Program; PCP Nurse Practitioner Family; Visit Provider Internal Medicine
DX: R07.89 Other chest pain (principal); R19.7 Diarrhea, unspecified; R10.9 Unspecified abdominal pain; I25.10 Atherosclerotic heart disease of native coronary artery without angina pectoris; Z98.61 Coronary angioplasty status; J44.1 Chronic obstructive pulmonary disease with (acute) exacerbation; I25.2 Old myocardial infarction; E11.9 Type 2 diabetes mellitus without complications; E83.42 Hypomagnesemia; E78.5 Hyperlipidemia, unspecified; I10 Essential (primary) hypertension; K21.9 Gastro-esophageal reflux disease without esophagitis; Z79.84 Long term (current) use of oral hypoglycemic drugs
CPT/HCPCS: 36415; 80048; 80053; 85027; 93005; 93306; 94640; 96365; 96366; 99217; 99220; 99285; 71046; 83735; 84443; 84484; 85025; 85379; 85610; 93010; 99223; G0378; J1644; J3475; J7512

== ENCOUNTER → 2018-09-09 07:57 | Outpatient (BNVA) | payer MEDICARE, MEDICAID, SELFPAY ==
--- NOTE | 2018-09-09 21:58 | W.CARDCONSUL ---
Date of service: 09/09/18 Time of Service: 15:30 Assessment and Plan (1) Chest pain at rest: Current visit: Yes Status: Acute 57-year-old man with history of severe COPD, GERD, bipolar disorder and multiple cardiovascular risk factors including significant smoking history, diabetes mellitus, hypertension, hyperlipidemia and morbid obesity. He also has a remote history of alcohol abuse. He presented to the ED yesterday with a one-week history of diarrhea, abdominal pain and chest pain. His chest pain episodes are troponin negative, nonexertional, sometimes pleuritic and coincide with the onset of what appears to be a gastrointestinal illness. His EKG is unremarkable. taken together, an exacerbation of his known reflux disease is a possible explanation of his symptoms. However, he describes some anginal features with his chest pain, including left shoulder pain/radiation and associated nausea and diaphoresis. In view of his multitude of cardiovascular risk factors I would therefore recommend further ischemic work-up with nuclear myocardial perfusion imaging. As he is currently pain-free, EKG and troponins have remained unremarkable and he is not interested in staying over the weekend, it appears reasonable to schedule an outpatient stress test. He states that he considers himself able to run on a treadmill for exercise, rather than undergoing a pharmacological stress test. Recommend to continue aspirin, statin, blood pressure medications, PRN nitro and magnesium supplementation for now. Discussed with Dr. Quiros. (2) Non-insulin dependent type 2 diabetes mellitus: Current visit: Yes Status: Chronic (3) Hypomagnesemia: Current visit: Yes Status: Acute (4) Hyperlipidemia: Current visit: Yes Status: Acute (5) Hypertension: Current visit: Yes Status: Chronic (6) GERD (gastroesophageal reflux disease): Current visit: Yes Status: Chronic (7) Tobacco abuse: Current visit: Yes Status: Acute (8) History of alcohol abuse: Current visit: No Status: Acute History of Present Illness Chief Complaint: chest pain Narrative: 57-year-old man with history of severe COPD, GERD, bipolar disorder and multiple cardiovascular risk factors including significant smoking history, diabetes mellitus, hypertension, hyperlipidemia and morbid obesity. He presented to the ED yesterday with a one-week history of diarrhea, abdominal pain and chest pain. He reports that about 1 week ago he started having recurrent episodes of diarrhea and abdominal discomfort. On the same day he started having episodes of chest pain, lasting 5 to 20 minutes, described as chest pressure, localized in his left chest with occasional tingling in his left shoulder. Some of these episodes were associated with nausea and severe sweating. Episodes were unrelated to exercise or food intake and appeared to occur at random times. Sometimes chest pain would get worse with taking deep breaths. On the day of admission, a chest pain episode lasted more than an hour and he therefore called EMS. By the time they arrived he was pain-free and hemodynamically stable. While he denies increased shortness of breath during these episodes, he reports increased exertional dyspnea in the course of the last few months. No associated exertional chest pain. He also denies palpitations, dizziness, syncope, orthopnea, PND, edema, fevers, chills, bleeding issues. By his report, he had a cardiac cath in [place] about a year ago, where he was told that he had one artery with a 50% blockage that did not require a stent placement. Data review: EKG 09/08/2018, 1141: Sinus bradycardia, 55/min, DE 202 ms, QTC 404 ms, QRS 84 ms, nonspecific T wave abnormality. EKG 09/09/2018, 0930: Sinus bradycardia, 55/min, DE 176 ms, QT 466 ms, QRS 86 ms, no significant ST/T wave changes. Echocardiogram 09/09/2018: 1. Left ventricle: The cavity size was normal. Wall thickness was at the upper limits of normal. Systolic function was normal. The estimated ejection fraction was 60-65%. Wall motion was normal; there were no regional wall motion abnormalities. 2. Right ventricle: The cavity size was at the upper limits of normal. Systolic function was normal. 3. Left atrium: The atrium was mildly dilated. 4. Inferior vena cava: The vessel was patent and normal in size. The respirophasic diameter changes were in the normal range (greater than or equal to 50%), consistent with normal central venous pressure. Chest x-ray 09/08/2018: No acute abnormalities. Labs: WBC 7.2, Hgb 14.8, Plt 140, sodium 134, potassium 3.8, magnesium 1.0, creatinine 0.94, LFTs normal, troponin negative x4. Consults Consult date: 09/09/18 Requesting physician: Almita Quiros Review of Systems Review of Systems All systems reviewed & are unremarkable except as noted in HPI and below PFSH Medical History Adenoma of colon (Acute) Sleep disturbance (Acute) Alcohol abuse (Chronic) Adenomatous colon polyp Back pain Bipolar 1 disorder COPD (chronic obstructive pulmonary disease) Diabetes mellitus GERD (gastroesophageal reflux disease) Heart disease Hyperlipidemia Hypertension Lumbar spinal stenosis Morbid obesity Resting tremor Tobacco dependence Surgical History H/O pneumonectomy (Chronic) History of cardiac cath (Chronic) Family History Father Cancer Maternal Cousin Cancer Other Hypertension Social History Smoking/Tobacco Use Status: Former Tobacco Use Quit Date: 09/04/18 Pack-years: 45 Tobacco: How many years used: 45 Counseling given: provider counseling and support medications Alcohol Intake: current Alcohol Intake frequency: a few times a week Drug use: Never Household members: other Details: daughter Do you feel safe in your relationship?: Yes Exam Const General: cooperative, comfortable and no acute distress Nutritional Appearance: obese morbidly obese Orientation: alert, awake and oriented x3 HENMT Head: normal to inspection, normocephalic and atraumatic Ears: hearing grossly normal bilaterally and external ears normal General nose exam: external nose normal Mouth: moist mucous membranes Teeth and gingiva: edentulous Eyes Eyelids: eyelids normal Conjunctivae: conjunctivae normal Sclera: sclerae normal Neck Neck: normal visual inspection, supple and No JVD Carotids: normal carotid upstroke and no bruits Chest Chest: normal inspection of the chest Resp Effort & Inspection: normal respiratory effort Auscultation: diminished lung sounds Cardio Rate: regular rate Rhythm: regular rhythm Heart Sounds: S1 normal, S2 normal, no gallops, no murmurs and no rubs Bruits: no abdominal aortic bruits and no renal bruits Pulses: radial pulses present, popliteal pulses present (0-1+) bilaterally, posterior tibial pulses present (0-1+) bilaterally and dorsalis pedis pulses present (0-1+ ) bilaterally GI Inspection: obesity Palpation: soft and nontender Auscultation: normal bowel sounds Skin General skin exam: no rashes or lesions noted Neuro General: alert, awake and oriented x3 Cognition: normal cognition Speech: speech normal Extrem General: no clubbing, cyanosis or edema Psych Mental Status: mental status grossly normal Affect: normal affect Attitude: cooperative Thought Process: normal Insight: insight good Meds Home Medications Medication Instructions Recorded Confirmed Type ProAir RespiClick 90 mcg INHALATION Q 4-6 HRS 02/25/17 09/08/18 History metformin 1,000 mg PO BID tab-cap 02/25/17 09/08/18 History olanzapine 15 mg PO DAILY tab-cap 02/25/17 09/08/18 History ranitidine HCl 150 mg PO BID tab-cap 02/25/17 09/08/18 History rosuvastatin [Crestor] 20 mg PO HS tab-cap 02/25/17 09/08/18 History propranolol 40 mg PO BID #60 tab-cap 06/08/17 09/08/18 Rx fluticasone propionate 220 1 puff IH BID 06/22/18 09/08/18 History mcg/actuation HFA aerosol inhaler gabapentin 300 mg capsule 300 mg PO TID 06/22/18 09/08/18 History lisinopril 10 mg tablet 10 mg PO DAILY 06/22/18 09/08/18 History nicotine 21 mg/24 hr daily 1 patch TD Q24H 06/22/18 09/08/18 History transdermal patch Symbicort 1 puff INHALATION BID 09/08/18 09/08/18 History cholecalciferol (vitamin D3) 2,000 unit PO DAILY 09/08/18 09/08/18 History divalproex 500 mg PO BID 09/08/18 09/08/18 History aspirin 81 mg PO DAILY #30 tab 09/09/18 Rx magnesium oxide 400 mg PO BID #30 cap 09/09/18 Rx nitroglycerin [Nitrostat] 0.4 mg SUBLINGUAL Q5 MIN PRN X3 09/09/18 Rx PRN #30 tab prednisone 40 mg PO DAILY #6 tab 09/09/18 Rx Allergies Allergy/AdvReac Type Severity Reaction Status Date / Time Penicillins Allergy Hives, Unverified 11/13/17 20:06 GET SICK
== END ==
PROVIDERS: PCP Nurse Practitioner Family; Visit Provider Internal Medicine Cardiovascular Disease
DX: R69 Illness, unspecified (principal)
CPT/HCPCS: 99255

== ENCOUNTER 2018-09-16 11:59 | Emergency (ER) | payer MEDICARE, MEDICAID, SELFPAY ==
[2018-09-16] VITALS (47 sets, daily range): BP systolic 99–130; BP diastolic 57–74; PULSE 53–69; RESP 12–22; TEMP 36.6–36.7; O2SAT 91–99
[2018-09-16 12:11] LABS: Abs Immature Grans 0.16 k/cumm (0.0-0.09); Absolute Basophil Count 0.06 k/cumm (0.0-0.2); Absolute Eosinophil Count 0.75 k/cumm (0.0-0.7); Absolute Lymphocyte Count 4.02 k/cumm (1.2-3.4); Absolute Monocyte Count 0.74 k/cumm (0.11-0.7); Absolute Neutrophil Count 3.72 k/cumm (1.2-6.7); Basophils % 0.6; Eosinophils % 7.9; HCT 41.3 % (40.0-50.0); Immature Grans % 1.7; Lymphocytes % 42.5; Mean Corp. HGB Concentration 36.3 g/dL (32.0-36.0); Mean Corpuscular Hemoglobin 32.2 pg (27.0-33.0); Mean Corpuscular Volume 88.6 fL (80-95); Monocytes % 7.8; Neutrophils % 39.5; Platelet Count 137 x1000/uL (130-400); RBC 4.66 m/cumm (4.50-6.00); RBC Distribution Width 12.8 % (11.8-14.1); White Blood Cell Count 9.45 k/cumm (4.4-10.8)
[2018-09-16 12:31] LABS: ALT 31 U/L (12-78); AST 14 U/L (15-37); Albumin 3.4 g/dL (3.4-5.0); Alkaline Phosphatase 75 U/L (46-116); Anion Gap 8.4 mmol/L (3-11); BUN 11 mg/dL (7-18); Bilirubin, Total 0.7 mg/dL (0.2-1.0); CO2 30.6 mmol/L (21.0-32.0); CREATININE 0.88 mg/dL (0.70-1.30); Calcium 9.2 mg/dL (8.5-10.1); Chloride 96 mmol/L (98-107); Glucose 130 mg/dL (70-100); Magnesium 1.6 mg/dL (1.8-2.4); Potassium 3.9 mmol/L (3.5-5.1); Sodium 135 mmol/L (136-145); Total Protein 6.7 g/dL (6.4-8.2)
[2018-09-16 12:40] LABS: Troponin I < 0.05 ng/mL (0.00-0.06)
--- NOTE | 2018-09-16 13:00 | W.ED.GENAD ---
Discharge Plan Disposition Patient Disposition: HOME Discharge Details Chief Complaint: Nausea/Vomit/Diar Clinical Impression: Chest pain, Nausea Primary Care Provider: Marivel Cardenas ED Provider: Parth Boudreaux Home Meds and New Rx's Prescriptions: Continued lisinopril 10 mg tablet 10 mg PO DAILY RF: 0 gabapentin 300 mg capsule 300 mg PO TID RF: 0 Flovent HFA 220 mcg/actuation HFA aerosol inhaler 1 puff IH BID RF: 0 nicotine [Nicoderm CQ] 21 mg/24 hr patch 24 hour 1 patch TD Q24H RF: 0 metformin 1,000 MG tablet 1,000 mg PO BID RF: 0 olanzapine 15 MG tablet 15 mg PO DAILY RF: 0 ranitidine HCl 150 MG capsule 150 mg PO BID RF: 0 rosuvastatin [Crestor] 20 MG tablet 20 mg PO HS RF: 0 ProAir RespiClick 90 MCG aerosol powdr breath activated 90 mcg Inhalation Q 4-6 HRS RF: 0 propranolol 40 MG tablet 40 mg PO BID Qty: 60 RF: 3 magnesium 200 mg Tablet 400 mg PO BID RF: 0 divalproex 500 mg Tablet,Delayed Release (Dr/Ec) 500 mg PO BID RF: 0 cholecalciferol (vitamin D3) 1,000 unit Tablet 2,000 unit PO DAILY RF: 0 Symbicort 160-4.5 mcg/actuation Hfa Aerosol Inhaler 1 puff Inhalation BID RF: 0 prednisone 20 mg Tablet 40 mg PO DAILY Qty: 6 RF: 0 aspirin 81 mg Tablet,Delayed Release (Dr/Ec) 81 mg PO DAILY Qty: 30 RF: 0 nitroglycerin [Nitrostat] 0.4 mg Tablet, Sublingual 0.4 mg Sublingual Q5 MIN PRN X3 PRNQty: 30 RF: 0 magnesium oxide 400 mg capsule 400 mg PO BID Qty: 30 RF: 0 Discharge Instructions Instructions: Chest Pain (ED), Acute Nausea and Vomiting (ED) Additional Instructions: Please contact your primary care physician to arrange follow-up. Call Wednesday. Please have stress test as scheduled September 21 at 8:45 AM here at [facility]. Return to the ER for any worsening or new concerning symptoms. Referrals: Marivel Cardenas [Primary Care Provider] - Discharge Data Discharge Date/Time-TO BE ENTERED AT DEPARTURE: 09/16/18 17:21 Medical Decision Making 13:05 --57-year-old male with history of smoking, diabetes, hypertension, hyperlipidemia, GERD, bipolar disorder, COPD, here with chief complaint of nausea this morning. No abdominal pain. Abdominal exam benign. Patient is also had some chest pain last night and again this morning. Of note, patient was recently seen here in the emerge department and admitted for chest pain. He had an inpatient stay that included serial enzymes, EKGs, and cardiology consultation. Patient was discharged after negative work-up and instructed to schedule a cardiac stress test which has yet to be scheduled. Screening ECG reviewed and interpreted by me: Normal sinus rhythm 62 bpm, normal axis, no ST elevation or significant ST changes. Plan to check troponin. Given there was somewhat of a pleuritic nature to pain I will also check a d-dimer. Zofran 4 mg IV for nausea. 17:10 --Troponin and delta troponin negative and unchanged Patient reassessed and notes feeling much better. Patient has remained stable here in the emergency department after prolonged ED observation. Plan for outpatient follow-up with PCP. I have ensured that the patient has follow-up stress testing that was previously ordered. Disposition decision was made weighing the risks and benefits of hospitalization versus outpatient treatment, the risk for further decompensation, and the patient's wishes. The patient was stable and requested discharge. Prior to discharge, my usual and customary return precautions were reviewed with the patient - this included follow-up instructions and reason to return to the emergency department if condition worsens, does not improve as expected, or other new concerns arise. HPI General Mode of arrival: ambulatory. Date/Time Provider Initiated Documentation: 09/16/18 12:00. Limitations to Documentation: no limitations. Information obtained by: patient. HPI Narrative: 57-year-old male with history of COPD, GERD, bipolar disorder, smoker, diabetes, hypertension, hyperlipidemia, here with chief complaint of nausea. Patient notes moderate nausea, feels like he is going to vomit, started this a.m. and has persisted. He has associated loose stool today. Patient also notes that he has had chest pain. He had chest pain last night that was brief and again this morning that was brief. Pain localized to left chest laterally and felt like a cramp. Pain seemed worse with deep breath. Patient notes that he has had some left arm pain over the past few days is worse on palpation of his antecubital fossa. Patient denies shortness of breath. Related Data Home Medications Medication Instructions Recorded Confirmed ProAir RespiClick 90 mcg INHALATION Q 4-6 HRS 02/25/17 09/16/18 metformin 1,000 mg PO BID tab-cap 02/25/17 09/16/18 olanzapine 15 mg PO DAILY tab-cap 02/25/17 09/16/18 ranitidine HCl 150 mg PO BID tab-cap 02/25/17 09/16/18 rosuvastatin [Crestor] 20 mg PO HS tab-cap 02/25/17 09/16/18 propranolol 40 mg PO BID #60 tab-cap 06/08/17 09/16/18 fluticasone propionate 220 1 puff IH BID 06/22/18 09/16/18 mcg/actuation HFA aerosol inhaler gabapentin 300 mg capsule 300 mg PO TID 06/22/18 09/16/18 lisinopril 10 mg tablet 10 mg PO DAILY 06/22/18 09/16/18 nicotine 21 mg/24 hr daily 1 patch TD Q24H 06/22/18 09/16/18 transdermal patch Symbicort 1 puff INHALATION BID 09/08/18 09/16/18 cholecalciferol (vitamin D3) 2,000 unit PO DAILY 09/08/18 09/16/18 divalproex 500 mg PO BID 09/08/18 09/16/18 aspirin 81 mg PO DAILY #30 tab 09/09/18 09/16/18 magnesium oxide 400 mg PO BID #30 cap 09/09/18 09/16/18 nitroglycerin [Nitrostat] 0.4 mg SUBLINGUAL Q5 MIN PRN X3 09/09/18 09/16/18 PRN #30 tab prednisone 40 mg PO DAILY #6 tab 09/09/18 09/16/18 magnesium 400 mg PO BID 09/16/18 09/16/18 Previous Rx's Medication Instructions Recorded propranolol 40 mg PO BID #60 tab-cap 06/08/17 aspirin 81 mg PO DAILY #30 tab 09/09/18 magnesium oxide 400 mg PO BID #30 cap 09/09/18 nitroglycerin [Nitrostat] 0.4 mg SUBLINGUAL Q5 MIN PRN X3 09/09/18 PRN #30 tab prednisone 40 mg PO DAILY #6 tab 09/09/18 Allergies Allergy/AdvReac Type Severity Reaction Status Date / Time Penicillins Allergy Hives, Unverified 11/13/17 20:06 GET SICK General Stated Complaint: Nausea/Vomit/Diar PATEL: 3 Review of Systems Review of Systems All systems reviewed & are unremarkable except as noted in HPI and below Cardiovascular Reports as per HPI Respiratory Reports as per HPI [facility] Medical History Adenoma of colon (Acute) Adenomatous colon polyp Alcohol abuse (Chronic) Back pain Bipolar 1 disorder COPD (chronic obstructive pulmonary disease) Diabetes mellitus GERD (gastroesophageal reflux disease) Heart disease Hyperlipidemia Hypertension Lumbar spinal stenosis Morbid obesity Resting tremor Sleep disturbance (Acute) Tobacco dependence Surgical History H/O pneumonectomy (Chronic) History of cardiac cath (Chronic) Family History Father Cancer Maternal Cousin Cancer Other Hypertension Social History Smoking/Tobacco Use Status: Former Tobacco Use Quit Date: 09/04/18 Pack-years: 45 Tobacco: How many years used: 45 Counseling given: provider counseling and support medications Alcohol Intake: current Alcohol Intake frequency: a few times a week Drug use: Never Substance use type: does not use Household members: other Details: daughter Do you feel safe in your relationship?: Yes Exam Const General: cooperative and no acute distress HENMT Head: normocephalic and atraumatic Mouth: moist mucous membranes Eyes Conjunctivae: normal conjunctivae Sclera: normal sclerae Neck Neck: trachea midline and supple Chest Chest: tenderness pectoral muscle bilaterally (L>R) Resp Auscultation: clear to auscultation bilaterally, no rales, no rhonchi and no wheezes Cardio Jugular venous pressure: no JVD Rate: regular rate and not tachycardic Rhythm: regular rhythm GI Palpation: soft, not firm, no guarding, no masses, not rigid and nontender Skin General skin exam: no rashes or lesions noted Neuro General: alert, awake, oriented x3 and tone normal Extrem General: no calf tenderness and no edema Psych Appearance: grossly normal Course Vital Signs Temperature 36.6 C 09/16/18 11:58 Pulse 63 09/16/18 11:58 Respiratory Rate 18 09/16/18 11:58 Pulse Oximetry 97 09/16/18 11:58 Temperature 36.6 C 09/16/18 11:58 Pulse 63 09/16/18 11:58 Respiratory Rate 18 09/16/18 11:58 Respiratory Effort Non-Labored 09/16/18 11:58 Blood Pressure 119/67 09/16/18 12:08 Blood Pressure Position Supine 09/16/18 11:58 Pulse Oximetry 97 09/16/18 11:58 Oxygen Delivery Method Room Air 09/16/18 11:58 Oxygen Flow Rate 0 09/16/18 11:58 Lab/Test Results Lab/Test Results: Laboratory Tests Range/Units 09/16/18 09/16/18 12:00 12:00 WBC (4.4-10.8) k/cumm 9.45 RBC (4.50-6.00) m/cumm 4.66 Hgb (13.5-17.5) g/dL 15.0 Hct (40.0-50.0) % 41.3 MCV (80-95) fL 88.6 MCH (27.0-33.0) pg 32.2 MCHC (32.0-36.0) g/dL 36.3 H RDW (11.8-14.1) % 12.8 Plt Count (130-400) x1000/uL 137 MPV (8.0-11.0) fL 10.0 Immature Gran % 1.7 Neutrophils % 39.5 Lymphocytes % 42.5 Monocytes % 7.8 Eosinophils % 7.9 Basophils % 0.6 Absolute Neutrophils (1.2-6.7) k/cumm 3.72 Absolute Lymphocytes (1.2-3.4) k/cumm 4.02 H Absolute Monocytes (0.11-0.7) k/cumm 0.74 H Absolute Eosinophils (0.0-0.7) k/cumm 0.75 H Absolute Basophils (0.0-0.2) k/cumm 0.06 Sodium (136-145) mmol/L 135 L Potassium (3.5-5.1) mmol/L 3.9 Chloride (98-107) mmol/L 96 L Carbon Dioxide (21.0-32.0) mmol/L 30.6 Anion Gap (3-11) mmol/L 8.4 BUN (7-18) mg/dL 11 Creatinine (0.70-1.30) mg/dL 0.88 Estimated GFR/1.73 m2 (mL/min/1.73m2) >= 60.00 Glucose (70-100) mg/dL 130 H Calcium (8.5-10.1) mg/dL 9.2 Magnesium (1.8-2.4) mg/dL 1.6 L Total Bilirubin (0.2-1.0) mg/dL 0.7 AST (15-37) U/L 14 L ALT (12-78) U/L 31 Alkaline Phosphatase (46-116) U/L 75 Troponin I (0.00-0.06) ng/mL < 0.05 Total Protein (6.4-8.2) g/dL 6.7 Albumin (3.4-5.0) g/dL 3.4
[2018-09-16] MEDS: MAGNESIUM SULFATE 1 GM/100 ML BAG IVPB (13:19)
[2018-09-16 13:44] LABS: D-Dimer 398 ng/mlFEU (<500)
--- NOTE | 2018-09-16 13:58 | NUR.NOTE ---
Nursing Note: pt resting in bed, no signs of distress. States that his nausea has resolved
[2018-09-16 15:24] LABS: Troponin I < 0.05 ng/mL (0.00-0.06)
== END 2018-09-16 17:21 | disposition home or self-care (01) ==
PROVIDERS: Emergency Provider Student in an Organized Health Care Education/Training Program; PCP Nurse Practitioner Family
DX: R07.89 Other chest pain (principal); R11.0 Nausea; I10 Essential (primary) hypertension; E11.9 Type 2 diabetes mellitus without complications; Z87.891 Personal history of nicotine dependence; Z79.84 Long term (current) use of oral hypoglycemic drugs
CPT/HCPCS: 80053; 93005; 96365; 99284; 83735; 84484; 85025; 85379; 93010; J3475

== ENCOUNTER 2018-09-28 00:19 | Outpatient (CLI) | payer MEDICARE, MEDICAID, SELFPAY ==
[2018-09-28] MEDS: Regadenoson 0.4 MG/5 ML SYR IVP (12:29)
== END 2018-09-28 00:39 ==
PROVIDERS: PCP Nurse Practitioner Family; Visit Provider Internal Medicine
DX: R07.89 Other chest pain (principal); R11.0 Nausea
CPT/HCPCS: J2785

== ENCOUNTER 2018-09-28 13:47 | Outpatient (CLI) | payer MEDICARE, MEDICAID, SELFPAY ==
--- NOTE | 2018-09-28 08:45 | MERGEMPI_ITS ---
*[facility]* *[facility]* [address] [place] [address] Myocardial Perfusion Imaging - SPECT [place] protocol Date of study: 09/28/2018 *PATIENT PRESENTATION* Height: 180.3cm (71in) Blood Pressure: Weight: 118.9kg (261.5lb) BSA: 2.48m^2 Referring physician: Cedrick Harding Ordering physician: Almita Quiros Impressions: - Test changed from treadmill to pharmacological stress test because of inability to walk on treadmill. - Normal myocardial perfusion and contraction after pharmacological stress. - Low risk of cardiac events but higher compared to non-diabetics. Summary: 1. Myocardial perfusion imaging: No myocardial perfusion defects noted. 2. The calculated left ventricular ejection fraction after stress: 55%. LV global systolic function is normal. No left ventricular regional motion abnormality. 3. Stress ECG conclusions: The stress ECG is negative. 4. Imaging information: gated. Image quality reduced due to diaphragmatic attenuation. Attenuation correction used. Indication: R07.9. History: REASON FOR TESTING: PATIENT TESTING TODAY FOR FURTHER RISK STRATIFICATION. PATIENT PRESENTED TO THE EMERGENCY ROOM ON 09/08/18 AND 09/16/18, BOTH TIMES WITH SIMILAR SYMPTOMS, LEFT SIDED PRESSURE/STABBING CHEST PAIN (10/10) AT REST AND WITH CRAMPING RADIATION TO LEFT SHOULDER/ARM, NAUSEA AND DIAPHORESIS. ON 09/16/18 HE WAS ADMITTED TO THE HOSPITAL RESULTING IN A NEGATIVE WORKUP. HE REPORTS AN INCREASED LEVEL OF DISCOMFORT WITH HE CHEST PAIN EPISODES RECENTLY. HE STATES HE HAS BEEN HAVING CHEST PAIN FOR A COUPLE OF YEARS APPROXIMATELY TWO TIMES PER MONTH. HE DENIES CHEST PAIN/DIAPHORESIS UPON ARRIVAL TO TESTING TODAY. HE DOES REPORTS SLIGHT NAUSEA WHICH HE HAS HAD FOR THE LAST MONTH. SIGNIFICANT PAST MEDICAL HISTORY: CARDIAC CATH DONE IN [place] ABOUT A YEAR AGO, WHERE HE WAS TOLD THAT HE HAD ONE ARTERY WITH A 50% BLOCKAGE THAT DID NOT REQUIRE A STENT PLACEMENT. HISTORY OF PHEUMONECTOMY. ECHOCARDIOGRAM FROM 09/09/18 ESTIMATES EJECTION FRACTION WAS 60-60%. SMOKING STATUS: CURRENT SMOKER FOR 45 YEARS--0.5 TO 1 PPD. EXERCISE ROUTINE: SEDENTARY LIFESTYLE. PMH: COPD. Risk factors: Family history of coronary artery disease. Hypertension. Diabetes mellitus. Obesity. Dyslipidemia. Cholesterol: 140mg/dl. HDL: 41mg/dl. LDL: 71mg/dl. Triglycerides: 178mg/dl. ALLERGIES: PENICILLIN. MEDICATIONS: PROAIR RESPICLICK IH PRN, METFORMIN 1000 IN THE MORNING AND 500 MG AT BEDTIME, OLANZAPINE 15 MG DAILY, RANITIDINE HCI 150 MG BID, CRESTOR 20 MG HS, PROPRANOLOL 40 MG BID, FLUTICASONE PROPIONATE IH BID, GABAPENTIN 300 MG TID, LISINOPRIL 10 MG DAILY, NICOTINE 21 MG TRANSDERMAL PATCH DAILY, SYMBICORT IH BID, VITAMIN D 2000 UNITS DAILY, DIVALPROEX 500 MG BID, ASPIRIN 81 MG DAILY, NITROSTAT 0.4 MG PRN, PREDNISONE 40 MG DAILY. Imaging Technique: Protocol: [place] protocol. Acquisition: Gated SPECT; 1 day - rest/stress. The patient was imaged in the supine position. Attenuation correction used. Isotope administration: - Rest. Tc[99m]-sestamibi. Dose: 12.3mCi. Date: 09/28/2018. Injection time: 08:30 AM. Injection to stress time: 00:45. - Stress. Tc[99m]-sestamibi. Dose: 36.8mCi. Injection time: 10:15 AM. 1-2 min before end of exercise Test Modification: Original ordered test: Treadmill stress test. New test ordered: Pharmacological stress test. Reason test was changed: Unable to walk on treadmill. Baseline ECG: SINUS BRADYCARDIA. HR 58 BPM. Sinus bradycardia. Stress protocol: + +--+ + !Stage !HR!BP (mmHg) ! + +--+ + !Baseline supine!58!178/92 (121)! + +--+ + !Recovery; 1 min!69!180/72 (108)! + +--+ + !Recovery; 3 min!65!180/72 (108)! + +--+ + !Recovery; 6 min!65!160/82 (108)! + +--+ + !Recovery; 9 min!60!154/96 (115)! + +--+ + * Stress results: STRESS TEST ENDED IN 9 MINUTES 16 SECONDS. NORMAL HEART RATE AND BLOOD PRESSURE RESPONSE TO LEXISCAN INJECTION. RARE PVC'S NOTED. CHEST PRESSURE 3/10 AT 2 MINUTES POST LEXISCAN INJECTION. CHEST PRESSURE 2/10 AT 4 MINUTES POST LEXISCAN INJECTION. CHEST PRESSURE 1/10 AT 7 MINUTES POST LEXISCAN INJECTION. CHEST PRESSURE COMPLETLY GONE B Y 9 MINUTES POST LEXISCAN INJECTION. NO SIGNIFICANT ST SEGMENT CHANGES. UNABLE TO DO [place] PROTOCOL WALKING STRESS TEST DUE TO LOWER BACK PAIN/LEG. STRESS TEST ENDED IN MINUTES SECONDS. HEART RATE AND BLOOD PRESSURE RESPONSE TO LEXISCAN INJECTION. ECTOPY. ANGINA. ST SEGMENT CHANGES. The rate-pressure product for the peak heart rate and blood pressure was 44645lf Hg/min. Stress ECG: The stress ECG is negative. Myocardial perfusion: Imaging information: gated. Image quality reduced due to diaphragmatic attenuation. Left ventricular size is normal. No myocardial perfusion defects noted. Ventricular Function (Wall Motion): The calculated left ventricular ejection fraction after stress: 55%. LV global systolic function is normal. No left ventricular regional motion abnormality. Study data: Cedrick Harding MD supervised and was readily available during the procedure. This study was interpreted by [facility]. Study status: Routine. Consent: The risks, benefits, and alternatives to the procedure were explained to the patient and informed consent was obtained. Procedure: Initial setup. A baseline ECG was recorded. Surface ECG leads and manual cuff blood pressure measurements were monitored. Heart sounds: Normal. Lung sounds: Normal. Regadenoson stress test. Stress testing was performed, with regadenoson infusion. Study completion: All catheters inserted during the procedure were removed. The patient tolerated the procedure well and was discharged from the lab. Discharge: The patient left the laboratory in stable condition. Birthdate: Patient birthdate: 1960. Sex: Gender: male. Study date: Study date: 09/28/2018. Study time: 00:01 AM. Signature Documentation: - The imaging portion of this study was interpreted by Nuclear Lost Charge Card Clerk Cedrick Harding MD. - The Stress ECG portion of this study was interpreted by Cedrick Harding MD. Electronically signed by Cedrick Harding 09/28/2018 14:09
== END 2018-09-28 14:07 ==
PROVIDERS: PCP Nurse Practitioner Family; Visit Provider Internal Medicine
DX: R07.89 Other chest pain (principal); R11.0 Nausea; R61 Generalized hyperhidrosis
CPT/HCPCS: 78452; 93016; 93018; 93017; J2785

== ENCOUNTER 2018-10-04 15:51 | Outpatient (REF) | payer MEDICARE, MEDICAID, SELFPAY ==
[2018-10-04 18:04] LABS: HCT 40.6 % (40.0-50.0); HGB 14.6 g/dL (13.5-17.5); Mean Corpuscular Hemoglobin 31.9 pg (27.0-33.0); Mean Corpuscular Volume 88.6 fL (80-95); Mean Platelet Volume 10.4 fL (8.0-11.0); Platelet Count 156 x1000/uL (130-400); RBC 4.58 m/cumm (4.50-6.00); RBC Distribution Width 12.7 % (11.8-14.1); White Blood Cell Count 8.38 k/cumm (4.4-10.8)
[2018-10-04 18:11] LABS: ALT 23 U/L (12-78); AST 16 U/L (15-37); Albumin 3.7 g/dL (3.4-5.0); Alkaline Phosphatase 57 U/L (46-116); Anion Gap 13.2 mmol/L (3-11); BUN 10 mg/dL (7-18); Bilirubin, Total 0.7 mg/dL (0.2-1.0); CO2 26.8 mmol/L (21.0-32.0); CREATININE 0.86 mg/dL (0.70-1.30); Calcium 9.8 mg/dL (8.5-10.1); Chloride 96 mmol/L (98-107); Glucose 101 mg/dL (70-100); Sodium 136 mmol/L (136-145); Total Protein 6.9 g/dL (6.4-8.2)
== END 2018-10-04 16:11 ==
LOC: NCHCN 15:51
PROVIDERS: PCP Nurse Practitioner Family; Visit Provider Nurse Practitioner Family
DX: M79.10 Myalgia, unspecified site (principal); R53.1 Weakness; K13.70 Unspecified lesions of oral mucosa
CPT/HCPCS: 80053; 85027

== ENCOUNTER 2018-11-10 19:57 | Outpatient (REF) | payer MEDICARE, MEDICAID, SELFPAY ==
[2018-11-10 19:09] LABS: HCT 41.9 % (40.0-50.0); HGB 14.6 g/dL (13.5-17.5); Mean Corp. HGB Concentration 34.8 g/dL (32.0-36.0); Mean Corpuscular Hemoglobin 30.9 pg (27.0-33.0); Mean Corpuscular Volume 88.6 fL (80-95); Platelet Count 158 x1000/uL (130-400); RBC 4.73 m/cumm (4.50-6.00); RBC Distribution Width 12.6 % (11.8-14.1); White Blood Cell Count 8.82 k/cumm (4.4-10.8)
[2018-11-10 19:44] LABS: ALT 22 U/L (16-63); AST 15 U/L (15-37); Albumin 3.7 g/dL (3.4-5.0); Alkaline Phosphatase 63 U/L (46-116); Anion Gap 9.9 mmol/L (3-11); BUN 7 mg/dL (7-18); Bilirubin, Total 0.5 mg/dL (0.2-1.0); CO2 29.1 mmol/L (21.0-32.0); CREATININE 0.87 mg/dL (0.70-1.30); Calcium 8.8 mg/dL (8.5-10.1); Chloride 97 mmol/L (98-107); Glucose 89 mg/dL (70-100); Potassium 3.8 mmol/L (3.5-5.1); Sodium 136 mmol/L (136-145); Total Protein 6.8 g/dL (6.4-8.2)
== END 2018-11-10 20:17 ==
LOC: NCHCN 19:57
PROVIDERS: PCP Nurse Practitioner Family; Visit Provider Nurse Practitioner Family
DX: R11.2 Nausea with vomiting, unspecified (principal); R10.84 Generalized abdominal pain
CPT/HCPCS: 80053; 85027

== ENCOUNTER 2018-11-22 00:53 | Outpatient (CLI) | payer MEDICARE, MEDICAID, SELFPAY ==
[2018-11-22] MEDS: Omnipaque 350 MG/ML 50 ML BTL PO (07:15)
--- NOTE | 2018-11-22 07:15 | DI.CT_ITS ---
EXAM: CT ABDOMEN PELVIS W CLINICAL HISTORY: RUQ ABD MASS, R19.01,ABD PAIN,R10.84, NAUSEA, VOMITING,R11.2 TECHNIQUE: CT examination the abdomen and pelvis was carried out according to usual protocol with an intravenous administration of 100 cc of Omnipaque 350. COMPARISON: No exams were available for comparison FINDINGS: The lung bases are unremarkable. The liver is intact. The gallbladder is unremarkable. The pancreas and spleen are unremarkable. Kidneys are unremarkable save for a small lower pole right cortical cy st. The adrenals are normal. There is no evidence of bowel obstruction. No localized bowel abnormali ty is apparent. There is nothing to suggest an acute appendix. The bladder is intact. The reproduc tive organs as visualized appear unremarkable. There are atherosclerotic changes involving the aorta without evidence of an aneurysm. Note is made of a narrowed vacuum disc at L5-S1. There are mild deg enerative bony changes at this level. The bony structures are otherwise unremarkable. IMPRESSION: Aside from a small right renal cyst the examination is unremarkable.
[2018-11-22] MEDS: Breeza Beverage 473 ML BTL PO (07:16)
[2018-11-22] MEDS: Omnipaque 350 MG/ML 100 ML BTL IJ (09:22)
== END 2018-11-22 01:13 ==
PROVIDERS: PCP Nurse Practitioner Family; Visit Provider Nurse Practitioner Family
DX: R19.01 Right upper quadrant abdominal swelling, mass and lump (principal); R10.11 Right upper quadrant pain; R11.2 Nausea with vomiting, unspecified; N28.1 Cyst of kidney, acquired
CPT/HCPCS: 74177; J3490; Q9967

== ENCOUNTER 2018-12-08 10:59 | Emergency (ER) | payer MEDICARE, MEDICAID, SELFPAY ==
[2018-12-08 11:05] VITALS: BP 156/100; PULSE 64; RESP 18; TEMP 36.4; O2SAT 97
[2018-12-08 11:10] VITALS: BP 137/84
[2018-12-08] MEDS: Lidocaine 5% Patch 1 PATCH TP (11:48)
[2018-12-08] MEDS: Ibuprofen 600 MG TAB PO (11:48)
--- NOTE | 2018-12-08 12:06 | DI.RAD_ITS ---
EXAM: XR ACROMIO CLAVICULAR JOINTS INDICATION: right ac joint pain. COMPARISON: No exams were available for comparison TECHNIQUE: 2D digital imaging was performed. FINDINGS: AP views of the AC joints were obtained. There is minimal hypertrophic degenerative change of both a cromioclavicular joints. No evidence of AC separation. No other significant bony abnormality seen. IMPRESSION:
--- NOTE | 2018-12-08 12:30 | W.ED.GENAD ---
Discharge Plan Disposition Patient Disposition: HOME Condition: Stable Discharge Details Chief Complaint: Orthopedic Clinical Impression: Right shoulder strain Primary Care Provider: Marivel Cardenas ED Provider: Jerome Montes De Oca Home Meds and New Rx's Prescriptions: No Action lisinopril 10 mg tablet 10 mg PO DAILY RF: 0 gabapentin 300 mg capsule 300 mg PO TID RF: 0 Flovent HFA 220 mcg/actuation HFA aerosol inhaler 1 puff IH BID RF: 0 nicotine [Nicoderm CQ] 21 mg/24 hr patch 24 hour 1 patch TD Q24H RF: 0 sucralfate 1 gram tablet 1 gm PO QACHS RF: 0 dextromethorphan-guaifenesin 10-100 mg/5 mL syrup 10 ml PO HS PRNRF: 0 ranitidine HCl 150 mg capsule 150 mg PO BID RF: 0 metformin 1,000 MG tablet 1,000 mg PO BID RF: 0 olanzapine 15 MG tablet 15 mg PO DAILY RF: 0 ranitidine HCl 150 MG capsule 150 mg PO BID RF: 0 rosuvastatin [Crestor] 20 MG tablet 20 mg PO HS RF: 0 ProAir RespiClick 90 MCG aerosol powdr breath activated 90 mcg Inhalation Q 4-6 HRS RF: 0 propranolol 40 MG tablet 40 mg PO BID Qty: 60 RF: 3 magnesium 200 mg Tablet 400 mg PO BID RF: 0 divalproex 500 mg Tablet,Delayed Release (Dr/Ec) 500 mg PO BID RF: 0 cholecalciferol (vitamin D3) 1,000 unit Tablet 2,000 unit PO DAILY RF: 0 Symbicort 160-4.5 mcg/actuation Hfa Aerosol Inhaler 1 puff Inhalation BID RF: 0 prednisone 20 mg Tablet 40 mg PO DAILY Qty: 6 RF: 0 aspirin 81 mg Tablet,Delayed Release (Dr/Ec) 81 mg PO DAILY Qty: 30 RF: 0 nitroglycerin [Nitrostat] 0.4 mg Tablet, Sublingual 0.4 mg Sublingual Q5 MIN PRN X3 PRNQty: 30 RF: 0 magnesium oxide 400 mg capsule 400 mg PO BID Qty: 30 RF: 0 Discharge Instructions Instructions: Shoulder Sprain (ED) Additional Instructions: Please wear the sling for the next couple days and slowly perform range of motion activities 3 times daily to prevent frozen shoulder. If you are not showing signs of improvement over the next 2 weeks please call orthopedic office for arrangement of follow-up appointment. You may continue to take [id number] pain medication as directed by packaging. Return to the emergency department for any new or significant worsening of symptoms. Referrals: Clemente Soliman MD [ [facility] STAFF PHYSICIAN] - Discharge Data Discharge Date/Time-TO BE ENTERED AT DEPARTURE: 12/08/18 12:41 Medical Decision Making Patient presenting to the emergency department for right shoulder pain. Patient reports that while he was sleeping he rolled over on his shoulder and pushed up with it and felt a snap and a pop to his right superior aspect of the shoulder. Physical exam shows tenderness to the AC joint of the shoulder otherwise is unremarkable exam. Patient otherwise has full range of motion of the joint, no signs of dislocation, exam again otherwise unremarkable. Plan to do radiological imaging for an evaluation of fracture but feel more likely shoulder strain. Review of radiological imaging shows no acute fracture or abnormality. Patient was placed in a sling for comfort measures only but informed to do range of motion activities. Patient otherwise to follow-up with orthopedist for reassessment if not improving and to otherwise take kaco-ual-rigkodu pain medications as needed. After discussion of diagnosis and plan of care patient has no further needs, questions, or concerns and states clear understanding to return to the emergency department for any worsening symptoms. HPI General Mode of arrival: ambulatory. Date/Time Provider Initiated Documentation: 12/08/18 11:13. Limitations to Documentation: no limitations. Information obtained by: patient and RN notes reviewed. History of Present Illness 58 year old M presents to the emergency department with the chief complaint of right shoulder injury, described as moderate, with intensity rated at 10. Quality is described as sharp, and is localized to the right and upper extremity. Patient started experiencing this hour(s) (6) and it has been constant. Patient notes no other symptoms.. Patient did receive the following treatments prior to arrival, none Related Data Home Medications Medication Instructions Recorded Confirmed ProAir RespiClick 90 mcg INHALATION Q 4-6 HRS 02/25/17 10/18/18 metformin 1,000 mg PO BID tab-cap 02/25/17 10/18/18 olanzapine 15 mg PO DAILY tab-cap 02/25/17 10/18/18 ranitidine HCl 150 mg PO BID tab-cap 02/25/17 09/16/18 rosuvastatin [Crestor] 20 mg PO HS tab-cap 02/25/17 09/16/18 propranolol 40 mg PO BID #60 tab-cap 06/08/17 10/18/18 fluticasone propionate 220 1 puff IH BID 06/22/18 10/18/18 mcg/actuation HFA aerosol inhaler gabapentin 300 mg capsule 300 mg PO TID 06/22/18 10/18/18 lisinopril 10 mg tablet 10 mg PO DAILY 06/22/18 10/18/18 nicotine 21 mg/24 hr daily 1 patch TD Q24H 06/22/18 10/18/18 transdermal patch Symbicort 1 puff INHALATION BID 09/08/18 09/16/18 cholecalciferol (vitamin D3) 2,000 unit PO DAILY 09/08/18 09/16/18 divalproex 500 mg PO BID 09/08/18 10/18/18 aspirin 81 mg PO DAILY #30 tab 09/09/18 09/16/18 magnesium oxide 400 mg PO BID #30 cap 09/09/18 10/18/18 nitroglycerin [Nitrostat] 0.4 mg SUBLINGUAL Q5 MIN PRN X3 09/09/18 10/18/18 PRN #30 tab prednisone 40 mg PO DAILY #6 tab 09/09/18 09/16/18 magnesium 400 mg PO BID 09/16/18 10/18/18 dextromethorphan-guaifenesin 10 10 ml PO HS PRN ml 10/18/18 10/18/18 mg-100 mg/5 mL oral syrup ranitidine HCl 150 mg capsule 150 mg PO BID 10/18/18 10/18/18 sucralfate 1 gram tablet 1 gm PO QACHS 10/18/18 10/18/18 Previous Rx's Medication Instructions Recorded propranolol 40 mg PO BID #60 tab-cap 06/08/17 aspirin 81 mg PO DAILY #30 tab 09/09/18 magnesium oxide 400 mg PO BID #30 cap 09/09/18 nitroglycerin [Nitrostat] 0.4 mg SUBLINGUAL Q5 MIN PRN X3 09/09/18 PRN #30 tab prednisone 40 mg PO DAILY #6 tab 09/09/18 Allergies Allergy/AdvReac Type Severity Reaction Status Date / Time Penicillins Allergy Hives, Unverified 12/08/18 11:09 GET SICK General Stated Complaint: Orthopedic PATEL: 4 Review of Systems ENT Ears, Nose, Mouth, and Throat: Denies neck pain Musculoskeletal Musculoskeletal: Reports as per HPI, Denies joint swelling, Denies neck pain, Denies numbness, Denies radiating pain into limb and Denies tingling Integumentary/Breasts Skin/Breast: Denies rash, Denies sores and Denies wounds Neurologic Neurologic: Denies numbness and Denies tingling [facility] Medical History Adenoma of colon (Acute) Adenomatous colon polyp Alcohol abuse (Chronic) Back pain Bipolar 1 disorder COPD (chronic obstructive pulmonary disease) Diabetes mellitus Dysphagia (Acute) GERD (gastroesophageal reflux disease) Heart disease History of ME (myocardial infarction) (Acute) Hyperlipidemia Hypertension Lumbar spinal stenosis Morbid obesity Obesity (Chronic) Resting tremor Sleep disturbance (Acute) Tobacco dependence Surgical History H/O pneumonectomy (Chronic) For lung abscess History of cardiac cath (Chronic) History of tracheostomy (Acute) Family History Father Cancer type unknown Maternal Cousin Cancer type unknown Other Hypertension Social History Smoking/Tobacco Use Status: Former Tobacco Use Quit Date: 09/04/18 Pack-years: 45 Tobacco: How many years used: 45 Counseling given: provider counseling and support medications Alcohol Intake: current Alcohol Intake frequency: a few times a week Drug use: Never Substance use type: does not use Household members: other Details: daughter Current gender identity: male Do you feel safe in your relationship?: Yes Exam Const General: cooperative and no acute distress Orientation: alert, awake and oriented x3 Resp Effort & Inspection: normal respiratory effort and able to speak in complete sentences Cardio Rate: regular rate Rhythm: regular rhythm Extrem Right upper extremity: shoulder/upper arm Details: tenderness Location: of the A-C joint; not of the proximal humerus, not of the mid-shaft humerus and not over the subacromial bursa, axillary nerve sensory function normal, normal ROM and abnormal ROM Details: pain with active ROM Details: in ABduction; no swelling, no crepitus and no penetrating wound, elbow/forearm Details: normal to inspection and normal ROM; no tenderness, wrist Details: normal to inspection and normal ROM; no tenderness and hand Details: normal to inspection, normal capillary refill, neuromotor exam normal, neurosensory exam normal and vascular exam Details: radial pulse present and normal capillary refill Course Vital Signs Vital signs: Vital Signs Temperature 36.4 C L 12/08/18 11:05 Pulse 64 12/08/18 11:05 Respiratory Rate 18 12/08/18 11:05 Blood Pressure 156/100 H 12/08/18 11:05 Pulse Oximetry 97 12/08/18 11:05 Temperature 36.4 C L 12/08/18 11:05 Temperature Source Skin 12/08/18 11:05 Pulse 64 12/08/18 11:05 Respiratory Rate 18 12/08/18 11:05 Respiratory Effort Non-Labored 12/08/18 11:14 Blood Pressure 137/84 12/08/18 11:10 Blood Pressure Position Sitting 12/08/18 11:05 Pulse Oximetry 97 12/08/18 11:05 Oxygen Delivery Method Room Air 12/08/18 11:05 Oxygen Flow Rate 0 12/08/18 11:05 Pain Level 10 12/08/18 11:48
[2018-12-08 12:41] VITALS: BP 137/84; PULSE 77; RESP 15; TEMP 36.8
== END 2018-12-08 12:41 | disposition home or self-care (01) ==
PROVIDERS: Emergency Provider Nurse Practitioner Family; PCP Nurse Practitioner Family
DX: S46.011A Strain of muscle(s) and tendon(s) of the rotator cuff of right shoulder, initial encounter (principal); X50.9XXA Other and unspecified overexertion or strenuous movements or postures, initial encounter
CPT/HCPCS: 99283; 73050; L3650

== ENCOUNTER 2018-12-13 14:29 | Outpatient (REF) | payer MEDICARE, MEDICAID, SELFPAY ==
[2018-12-13 18:54] LABS: C-Reactive Protein 0.21 mg/dL (0.0-0.3); Uric Acid 4.2 mg/dL (3.5-7.2)
== END 2018-12-13 14:49 ==
LOC: NCHCN 14:29
PROVIDERS: PCP Nurse Practitioner Family; Visit Provider Nurse Practitioner Family
DX: M79.10 Myalgia, unspecified site (principal); M25.50 Pain in unspecified joint
CPT/HCPCS: 85652; 84550; 86140

== ENCOUNTER 2018-12-29 12:30 | Outpatient (REF) | payer MEDICARE, MEDICAID, SELFPAY ==
[2018-12-29 19:27] LABS: VALPROIC ACID 66.3 ug/mL (50-100)
[2018-12-29 19:51] LABS: ESR 12 mm/hr (1-20)
== END 2018-12-29 12:50 ==
LOC: NCHCN 12:30
PROVIDERS: PCP Nurse Practitioner Family; Visit Provider Nurse Practitioner Family
DX: M79.10 Myalgia, unspecified site (principal); M25.50 Pain in unspecified joint; F31.9 Bipolar disorder, unspecified; Z51.81 Encounter for therapeutic drug level monitoring
CPT/HCPCS: 85652; 80164